=== PATIENT | female | born 1945 | race Caucasian/White ===

== ENCOUNTER 2020-08-11 10:27 | Inpatient (IN) | payer MEDICARE, MEDICAID, SELFPAY ==
[2020-08-11] VITALS (20 sets, daily range): BP systolic 84–170; BP diastolic 49–116; PULSE 86–120; RESP 15–24; TEMP 35.4–37; O2SAT 87–98; BMI 22.4; BMI 24.7
--- NOTE | 2020-08-11 10:42 | HMH.EDGENADL ---
ED Disposition Clinical Impression: HCAP (healthcare-associated pneumonia), Severe sepsis Respiratory failure with hypoxia Qualifiers: Chronicity: acute Qualified Code(s): J96.01 - Acute respiratory failure with hypoxia Disposition: Admitted As Inpatient Condition on Discharge: Serious Referrals: Taz Guardado [Primary Care Provider] - - Critical Care Critical Care Time: No Attestation: On , the high probability of a clinically significant, sudden or life threatening deterioration of the following system(s) required my full and direct attention, intervention and personal management. The time I documented below is in addition to time spent performing reported procedures but includes the following listed in this critical care notation. Medical Decision Making - Ralph Inquiry Pt receiving controlled substance: No Vital Signs: 08/11/20 10:28 08/11/20 10:44 08/11/20 11:00 Temperature 95.8 F L 98.2 F Temperature Source Rectal Rectal Pulse Rate 105 H 102 H Pulse Rate [Right Radial] 102 H Respiratory Rate 16 18 17 Blood Pressure 96/67 L Blood Pressure [Right Arm] 102/56 L Blood Pressure Mean [Right Arm] 71 Blood Pressure Source [Right Arm] Automatic Cuff Blood Pressure Position [Right Arm] Supine 02 Sat by Pulse Oximetry 96 96 95 Oxygen Delivery Method Simple Mask Simple Mask Oxygen Flow Rate (LPM) 6 5 - Lab Data Lab Results 08/11/20 10:30: WBC 26.8 H*, RBC 3.64 L, Hgb 10.8 L, Hct 33.9 L, MCV 93.3, MCH 29.7, MCHC 31.8, RDW 14.3, Plt Count 334, MPV 9.5, Neut % (Auto) 89.8 H, Lymph % (Auto) 6.7 L, [place] % (Auto) 2.5, Eos % (Auto) 0.6, Baso % (Auto) 0.4, Neut # (Auto) 24.1 H, Lymph # (Auto) 1.8, [place] # (Auto) 0.7, Eos # (Auto) 0.2, Baso # (Auto) 0.1, Total Counted 100, Neutrophils % (Manual) 91 H, Lymphocytes % (Manual) 7 L, Monocytes % (Manual) 2, Platelet Estimate Normal, Hypochromasia 1+ 08/11/20 10:30: Sodium 139, Potassium 4.1, Chloride 99, Carbon Dioxide 34 H, Anion Gap 10.1, BUN 31 H, Creatinine 1.00, Estimated Creat Clear 46, Estimated GFR 54 L, Est GFR ( Amer) 65, Glucose 91, Calcium 8.2 L, Total Bilirubin 0.6, AST 42 H, ALT 24, Alkaline Phosphatase 174 H, Troponin I 0.02, NT-Pro-B Natriuret Pep 1210 H, Total Protein 6.0 L, Albumin 2.4 L, Globulin 3.6 H, Albumin/Globulin Ratio 0.7 L 08/11/20 10:30: Lactate 1.4 08/11/20 11:01: Specimen Source Right radial, O2 % 5l nc, ABG pH 7.49 H, ABG pCO2 40.8, ABG pO2 79.8 L, ABG HCO3 30.3 H, ABG Total CO2 31.6 H, ABG O2 Saturation 96, ABG Base Excess 7.0 H, Michael Test Acceptable 08/11/20 11:11: Urine Color Yellow, Urine Appearance Clear, Urine pH 6.0, Ur Specific [place] 1.020, Urine Protein Negative, Urine Glucose (UA) Negative, Urine Ketones Negative, Urine Blood Negative, Urine Nitrate Negative, Urine Bilirubin 2+ A, Urine Urobilinogen 0.2, Ur Leukocyte Esterase Negative, Urine RBC None, Urine WBC 3-5, Ur Squamous Epith Cells Occasional, Urine Bacteria None Result diagrams: 08/11/20 10:30 08/11/20 10:30 Orders (Tests/Meds): ED MEDICATIONS Generic Name Dose Route Start Last Admin Trade Name Freq PRN Reason Stop Dose Admin Levofloxacin/Dextrose 750 mg in 150 mls @ 100 mls/hr 08/11/20 11:30 08/11/20 11:32 Levofloxacin 750mg/150ml Premix IV 08/25/20 11:29 100 mls/hr Q24H KARIN Administration Protocol Cefepime HCl 2 gm/ Sodium 100 mls @ 100 mls/hr 08/11/20 11:30 Chloride IV 08/25/20 11:29 Q12H KARIN Protocol Discontinued Medications Generic Name Dose Route Start Last Admin Trade Name Freq PRN Reason Stop Dose Admin Sodium Chloride 1,000 ml 08/11/20 12:05 Sodium Chloride 0.9% 1000ml Bag IV 08/11/20 12:06 BOLUS ONE ORDERS Category Date Time Status Full Resp Panel w/COVID ([facility]) Routine Lab 08/11/20 10:30 Received Troponin I Q3H Lab 08/11/20 14:15 Ordered Troponin I Q3H Lab 08/11/20 17:15 Ordered Blood Culture Stat Micro 08/11/20 10:30 Received MRSA Screen Stat Micro 08/11/20 12:04
--- NOTE | 2020-08-11 10:49 | PC.NURSE ---
Warm blanket applied to pt.
--- NOTE | 2020-08-11 10:56 | XR_ITS ---
PROCEDURE: XR CHEST PORTABLE CLINICAL HISTORY: low oxygen COMPARISON: No exams were available for comparison FINDINGS: Biventricular and right atrial pacemaker leads are in place from left subclavian approach. Normal heart size. There is consolidation in the left mid lower lung zone with small left pleural effusion. There is mild biapical pleural thickening. No acute bony abnormalities. IMPRESSION: Left lower lobe pneumonia with small effusion Dictated by: Michael Rick MD 08/11/2020 12:06 Michael Rick MD in OV 08/11/2020 12:06
[2020-08-11 10:59] LABS: Adenovirus,PCR Not Detected (NotDetected); Bordetella Pertussis Not Detected (NotDetected); Chlamydophila Pneumoniae, PCR Not Detected (NotDetected); Coronavirus 19, PCR Not Detected (NotDetected); Coronavirus 229E Not Detected (NotDetected); Coronavirus NL63 Not Detected (NotDetected); Coronavirus OC43 Not Detected (NotDetected); Coronovirus HKU1,PCR Not Detected (NotDetected); Human Metapneumovirus Not Detected (NotDetected); Influenza A, PCR Not Detected (NotDetected); Influenza AH1, 2009 Not Detected (NotDetected); Influenza AH1, PCR Not Detected (NotDetected); Influenza AH3,PCR Not Detected (NotDetected); Influenza B, PCR Not Detected (NotDetected); Mycoplasma Pneumoniae, PCR Not Detected (NotDetected); Parainfluenza 1, PCR Not Detected (NotDetected); Parainfluenza 2, PCR Not Detected (NotDetected); Parainfluenza 3, PCR Not Detected (NotDetected); Parainfluenza 4, PCR Not Detected (NotDetected); Respiratory Syncytial Virus Not Detected (NotDetected); Rhinovirus/Enterovirus Not Detected (NotDetected)
--- NOTE | 2020-08-11 11:02 | ECG_ITS ---
APPROVED REPORT Exam: Resting ECG HR:108 bpm ECG Measurements Heart Rate 108 AXES WI 86 P 62 QRSd 118 QRS -80 QT 396 T 68 QTc 530 Conclusion Electronic ventricular pacemaker Electronically signed by : Greg Willingham, 08/13/2020 21:24:56
[2020-08-11 11:08] LABS: Basophils # 0.1 K/mm3 (0-0.2); Basophils % 0.4 % (0.1-2.0); Eosinophils # 0.2 K/mm3 (0.0-0.4); Eosinophils % 0.6 % (0.1-12.0); Hematocrit 33.9 % (37.0-47.0); Hemoglobin 10.8 g/dL (12.2-16.2); Lymphocytes # 1.8 K/mm3 (0.7-4.5); Lymphocytes % 6.7 % (10-50); Mean Corpuscular HGB Conc 31.8 g/dL (31.8-35.4); Mean Corpuscular Hemoglobin 29.7 pg (27.0-31.2); Mean Corpuscular Volume 93.3 fl (81-99); Mean Platelet Volume 9.5 fl (7.4-10.4); Monocytes # 0.7 K/mm3 (0.1-1.0); Monocytes % 2.5 % (1.7-9.3); Neutrophils # 24.1 K/mm3 (1.8-7.8); Neutrophils % 89.8 % (37.0-80.0); Platelet Count 334 K/mm3 (142-424); Red Blood Count 3.64 M/mm3 (4.20-5.40); Red Cell Distribution Width 14.3 % (11.5-17.5); White Blood Count 26.8 K/mm3 (4.8-10.8)
[2020-08-11 11:15] LABS: Chloride 99 mmol/L (98-107); Potassium 4.1 mmoL/L (3.5-5.1); Sodium 139 mmol/L (136-145)
[2020-08-11 11:17] LABS: MANUAL DIFFERENTIAL MANUAL DIFFERENTIAL (MANUAL DIFF)
[2020-08-11 11:17] LABS: Microscopic, Urine URINE MICROSCOPIC (MICROSCOPIC)
--- NOTE | 2020-08-11 11:17 | PC.NURSE ---
rad at bedside
[2020-08-11 11:18] LABS: Alanine Aminotransferase 24 U/L (12-78); Albumin Level 2.4 g/dl (3.5-5.0); Albumin/Globulin Ratio 0.7 (1.1-1.8); Alkaline Phosphatase 174 U/L (38-126); Anion Gap 10.1 mEq/L (5-15); Aspartate Amino Transferase 42 U/L (14-36); Bilirubin,Total 0.6 mg/dl (0.2-1.3); Blood Urea Nitrogen 31 mg/dl (7-17); Calcium 8.2 mg/dl (8.4-10.2); Carbon Dioxide 34 mmol/L (22.0-30.0); Creatinine Clearance Estimated 46 mL/min (50-200); Estimated Glomerular Filt Rate 54 ml/min (>60); GFR (African American) 65 ML/MIN (>60); Globulin 3.6 g/dL (1.3-3.2); Glucose 91 mg/dl (74-100)
[2020-08-11 11:19] LABS: Lactic Acid 1.4 mmol/L (0.7-2.1)
[2020-08-11 11:27] LABS: Appearance,Urine CLEAR (Clear); Blood, Urine Negative (Negative); Color,Urine YELLOW (Yellow); Glucose,Urine (UA) Negative (Negative); Ketones,Urine Negative (Negative); Leukocyte Esterase,Urine Negative (Negative); Nitrate,Urine Negative (Negative); Protein,Urine Negative (Negative); Urobilinogen,Urine 0.2 EU/dl (0.2)
--- NOTE | 2020-08-11 11:28 | PC.NURSE ---
RT at bedside
[2020-08-11 11:31] LABS: Bilirubin,Urine 2+ (Negative)
[2020-08-11 11:37] LABS: ABG HCO3 30.3 mmhg (22.0-26.0); ABG Oxygen Saturation 96 % (90-100); ABG PCO2 40.8 mmhg (35.0-45.0); ABG PH 7.49 mmol/L (7.35-7.45); ABG PO2 79.8 mmhg (80-100); ABG TCO2 31.6 mmhg (23-27)
[2020-08-11 11:37] LABS: NT Pro Brain Natriuretic Pep. 1210 pg/mL (0-450)
[2020-08-11 11:41] LABS: Troponin I 0.02 ng/ml (0.00-0.034)
[2020-08-11 11:41] LABS: Oxygen 5L NC %
[2020-08-11 11:42] LABS: Allen's Test Acceptable; Source Right Radial
[2020-08-11 11:44] LABS: Squamous Epithelial Cell,Urine Occasional #/hpf (0-5)
[2020-08-11 11:53] LABS: Hypochromasia 1+; Lymphocytes % 7 % (10-50); Monocytes % 2 % (2-9); Neutrophils % 91 % (42-76); Platelet Estimate Normal; Total Cells Counted 100
--- NOTE | 2020-08-11 11:56 | PC.NURSE ---
Calling Miguelangel per MD request
--- NOTE | 2020-08-11 11:59 | PC.NURSE ---
Miguelangel and HILLARY MONTELONGO speaking at this time.
--- NOTE | 2020-08-11 12:18 | PC.NURSE ---
Called care management for a bed.
--- NOTE | 2020-08-11 13:22 | PC.NURSE ---
MD at bedside providing update.
--- NOTE | 2020-08-11 14:55 | P.CONPHA_ITS ---
[facility] Pharmacy VTE Monitoring - Patient Demographics Admission date: 08/11/20 Report Date: 08/11/20 Time: 14:55 Allergies/Adverse Reactions: Patient Allergies amiodarone Allergy (Verified 08/11/20 10:46) Height: 1.65 m Weight: 61.235 kg Patient Problems: Current Active Problems HCAP (healthcare-associated pneumonia) (Acute) Severe sepsis (Acute) Respiratory failure with hypoxia (Acute) - VTE Risk Labs: VTE Related Lab Results Hgb 10.8 g/dL (12.2-16.2) L 08/11/20 10:30 Hct 33.9 % (37.0-47.0) L 08/11/20 10:30 Plt Count 334 K/mm3 (142-424) 08/11/20 10:30 BUN 31 mg/dl (7-17) H 08/11/20 10:30 Creatinine 1.00 mg/dl (0.52-1.04) 08/11/20 10:30 Estimated Creat Clear 46 mL/min (50-200) 08/11/20 10:30 Was VTE Risk Assessment Performed: Yes Clinical Trial Participant: No - Prophylaxis VTE Prophylaxis Ordered?: Yes Types of VTE Prophylaxis: TEDS Knee High
--- NOTE | 2020-08-11 16:19 | PC.WOUNDNOTE ---
Left Arm Stage II coccyx Right Arm
--- NOTE | 2020-08-11 17:06 | HMH.HP ---
*Admission Date: 08/11/20 *Chief complaint: Shortness of breath *History of present illness: 74-year-old female with rheumatoid arthritis, COPD, and congestive heart failure presented to the emergency department from [facility] where patient has been residing for the last week. Patient was found to be hypoxic with decreased level of consciousness at the facility today and was transferred to our emergency department. Patient's O2 sat in route was as low as 78%. Patient arrived to the hospital ER on a nonrebreather. Patient was somnolent with depressed level of consciousness and minimal interaction. Work-up was begun and found a large left lower lobe pneumonia. Patient was started on broad-spectrum antibiotic coverage with cefepime and Levaquin. Since admission to the floor additional records have been received from [facility] that indicated patient has had staph in her sputum and was started on doxycycline yesterday. Therefore vancomycin has been added. Nonrebreather was used to try to keep sats in the low 90s which initially was successful but after admission patient has required transition to the Vapotherm which is keeping sats between 88 and 94%. Patient remains minimally interactive. Granddaughter is at bedside. Patient is moving arms and legs but does not respond to verbal or tactile stimulus. [facility] History I have reviewed the patient's past medical history: Yes Medical History: Reports:: Congestive Heart Failure, Hyperlipidemia, Hypertension Denies:: Diabetes Mellitus Type 1, Diabetes Mellitus Type 2 *Have you ever received a pneumonia vaccine?: Yes *Have you received a flu vaccine this season?: Yes - *Social History Alcohol Intake: never *Occupational Status:: other *Travel in the last 8 weeks: None Family Hx:: Unable to obtain Review of Systems - Review of Systems Review of systems:: unable to obtain Meds Home Medications Medication Instructions Recorded Confirmed Type Albuterol Sulfate [Albuterol 2 puff IH Q6HP PRN 08/11/20 08/11/20 History Sulfate Hfa] Aspirin 81 mg PO DAILY 08/11/20 08/11/20 History Baclofen [Lioresal 10mg tablet] 10 mg PO TID 08/11/20 08/11/20 History Celecoxib [CeleBREX 100mg Capsule] 100 mg PO TID 08/11/20 08/11/20 History Doxycycline Hyclate [Doxycycline 100 mg PO BID 08/11/20 08/11/20 History Hyclate 100mg Tablet] LORazepam [Lorazepam 1mg Tablet] 1 mg PO BID 08/11/20 08/11/20 History Montelukast Sodium 10 mg PO DAILY 08/11/20 08/11/20 History OXcarbazepine [Trileptal] 300 mg PO BID 08/11/20 08/11/20 History Omeprazole [Omeprazole 40mg 40 mg PO BID 08/11/20 08/11/20 History Capsule] Potassium Chloride [Klor-Con] 20 meq PO DAILY 08/11/20 08/11/20 History Simvastatin 40 mg PO HS 08/11/20 08/11/20 History Spironolactone [Spironolactone 25 mg PO DAILY 08/11/20 08/11/20 History 25mg Tablet] Torsemide [Demadex 20mg tablet] 20 mg PO DAILY 08/11/20 08/11/20 History Tramadol HCl [Tramadol 50mg 50 mg PO Q12H 08/11/20 08/11/20 History Tab] Trazodone HCl 300 mg PO HS 08/11/20 08/11/20 History Zinc Oxide [Diaper Rash Ointment] 0 gm TP QSHIFT PRN 08/11/20 08/11/20 History carvediloL [Carvedilol 25mg Tab] 12.5 mg PO DAILY 08/11/20 08/11/20 History carvediloL [Coreg 25mg Tablet] 25 mg PO HS 08/11/20 08/11/20 History ramipriL [Ramipril] 5 mg PO DAILY 08/11/20 08/11/20 History Allergies Allergy/AdvReac Type Severity Reaction Status Date / Time amiodarone Allergy Verified 08/11/20 10:46 Exam Vital signs and Labs for Last 24 Hours: Temp Pulse Resp BP Pulse Ox 97.7 F 110 H 20 114/59 L 90 L 08/11/20 15:11 08/11/20 15:24 08/11/20 15:11 08/11/20 15:11 08/11/20 16:10 Laboratory Results - last 24 hr 08/11/20 10:30: Chlamy pneumoniae PCR Not detected, Adenovirus (PCR) Not detected, B. pertussis DNA (PCR) Not detected, Coronavirus OC43 (PCR) Not detected, Coronavirus HKU1 (PCR) Not detected, Coronavirus 229E (PCR) Not detected, SARS-C
[2020-08-12] VITALS (11 sets, daily range): BP systolic 113–131; BP diastolic 63–77; PULSE 90–115; RESP 20–28; TEMP 36.6–37.3; O2SAT 94–99; BMI 24.9; BMI 24.7
--- NOTE | 2020-08-12 01:49 | PC.NURSE ---
She has mumbled some but unable to understand her speech. She moves all extremities and responds to touch. Has not opened her eyes. Meds administered crushed in applesauce with no problem. Vapotherm settings 25LPM 60%FiO2.
[2020-08-12 05:28] LABS: Chloride 108 mmol/L (98-107); Potassium 3.8 mmoL/L (3.5-5.1); Sodium 143 mmol/L (136-145)
[2020-08-12 05:31] LABS: Blood Urea Nitrogen 26 mg/dl (7-17); Creatinine Clearance Estimated 46 mL/min (50-200); Estimated Glomerular Filt Rate 97 ml/min (>60); GFR (African American) 118 ML/MIN (>60)
[2020-08-12 05:32] LABS: Anion Gap 9.8 mEq/L (5-15); Basophils # 0.1 K/mm3 (0-0.2); Basophils % 0.3 % (0.1-2.0); Calcium 8.1 mg/dl (8.4-10.2); Carbon Dioxide 29 mmol/L (22.0-30.0); Eosinophils % 0.1 % (0.1-12.0); Glucose 75 mg/dl (74-100); Hematocrit 32.4 % (37.0-47.0); Hemoglobin 9.9 g/dL (12.2-16.2); Lymphocytes # 1.3 K/mm3 (0.7-4.5); Lymphocytes % 6.2 % (10-50); Mean Corpuscular HGB Conc 30.7 g/dL (31.8-35.4); Mean Corpuscular Hemoglobin 29.2 pg (27.0-31.2); Mean Corpuscular Volume 95.1 fl (81-99); Mean Platelet Volume 8.8 fl (7.4-10.4); Monocytes # 0.5 K/mm3 (0.1-1.0); Monocytes % 2.6 % (1.7-9.3); Neutrophils # 18.8 K/mm3 (1.8-7.8); Neutrophils % 90.7 % (37.0-80.0); Platelet Count 304 K/mm3 (142-424); Red Cell Distribution Width 14.3 % (11.5-17.5); White Blood Count 20.7 K/mm3 (4.8-10.8)
[2020-08-12 05:38] LABS: MANUAL DIFFERENTIAL MANUAL DIFFERENTIAL (MANUAL DIFF)
[2020-08-12 05:58] LABS: Lymphocytes % 6 % (10-50); Monocytes % 2 % (2-9); Neutrophils % 92 % (42-76); Platelet Estimate Normal; Stomatocytes 1+; Total Cells Counted 100
--- NOTE | 2020-08-12 06:32 | PC.NURSE ---
She was able to answer yes when asked if she was in pain and stated her leg when asked where, but did not respond to further questions.
--- NOTE | 2020-08-12 06:40 | PC.NURSE ---
Respiratory weaned vapotherm to 25LPM 50% FiO2.
--- NOTE | 2020-08-12 07:15 | HMH.ACPN2 ---
Internal Medicine - PN: Subj *Date: 08/12/20 *Time: 07:15 Interval history: Patient is remained stable overnight and has become more alert. She reports shortness of breath. She denies pain. She is thirsty. Sputum culture was obtained this morning via suction and produced thick brownish-yellow sputum with the consistency of glue Exam Vital signs and Labs for Last 24 Hours: Temp Pulse Resp BP Pulse Ox 99.1 F 104 H 20 117/63 99 08/12/20 04:00 08/12/20 06:38 08/12/20 04:00 08/12/20 04:00 08/12/20 06:38 Laboratory Results - last 24 hr 08/11/20 10:30: Chlamy pneumoniae PCR Not detected, Adenovirus (PCR) Not detected, B. pertussis DNA (PCR) Not detected, Coronavirus OC43 (PCR) Not detected, Coronavirus HKU1 (PCR) Not detected, Coronavirus 229E (PCR) Not detected, SARS-CoV-2 (PCR) Not detected, Coronavirus NL63 (PCR) Not detected, Human Metapneumovir PCR Not detected, Influenza A (H1) PCR Not detected, Influ A (H1N1/09) PCR Not detected, Influenza A (H3) PCR Not detected, Influenza Type A (PCR) Not detected, Influenza Type B (PCR) Not detected, M. pneumoniae (PCR) Not detected, Parainfluenza 1 (PCR) Not detected, Parainfluenza 2 (PCR) Not detected, Parainfluenza 3 (PCR) Not detected, Parainfluenza 4 (PCR) Not detected, RSV (PCR) Not detected, Entero/Rhino (PCR) Not detected 08/11/20 10:30: WBC 26.8 H*, RBC 3.64 L, Hgb 10.8 L, Hct 33.9 L, MCV 93.3, MCH 29.7, MCHC 31.8, RDW 14.3, Plt Count 334, MPV 9.5, Neut % (Auto) 89.8 H, Lymph % (Auto) 6.7 L, [place] % (Auto) 2.5, Eos % (Auto) 0.6, Baso % (Auto) 0.4, Neut # (Auto) 24.1 H, Lymph # (Auto) 1.8, [place] # (Auto) 0.7, Eos # (Auto) 0.2, Baso # (Auto) 0.1, Total Counted 100, Neutrophils % (Manual) 91 H, Lymphocytes % (Manual) 7 L, Monocytes % (Manual) 2, Platelet Estimate Normal, Hypochromasia 1+ 08/11/20 10:30: Sodium 139, Potassium 4.1, Chloride 99, Carbon Dioxide 34 H, Anion Gap 10.1, BUN 31 H, Creatinine 1.00, Estimated Creat Clear 46, Estimated GFR 54 L, Est GFR ( Amer) 65, Glucose 91, Calcium 8.2 L, Total Bilirubin 0.6, AST 42 H, ALT 24, Alkaline Phosphatase 174 H, Troponin I 0.02, NT-Pro-B Natriuret Pep 1210 H, Total Protein 6.0 L, Albumin 2.4 L, Globulin 3.6 H, Albumin/Globulin Ratio 0.7 L 08/11/20 10:30: Lactate 1.4 08/11/20 11:01: Specimen Source Right radial, O2 % 5l nc, ABG pH 7.49 H, ABG pCO2 40.8, ABG pO2 79.8 L, ABG HCO3 30.3 H, ABG Total CO2 31.6 H, ABG O2 Saturation 96, ABG Base Excess 7.0 H, Michael Test Acceptable 08/11/20 11:11: Urine Color Yellow, Urine Appearance Clear, Urine pH 6.0, Ur Specific [place] 1.020, Urine Protein Negative, Urine Glucose (UA) Negative, Urine Ketones Negative, Urine Blood Negative, Urine Nitrate Negative, Urine Bilirubin 2+ A, Urine Urobilinogen 0.2, Ur Leukocyte Esterase Negative, Urine RBC None, Urine WBC 3-5, Ur Squamous Epith Cells Occasional, Urine Bacteria None 08/12/20 04:53: WBC 20.7 H*, RBC 3.40 L, Hgb 9.9 L, Hct 32.4 L, MCV 95.1, MCH 29.2, MCHC 30.7 L, RDW 14.3, Plt Count 304, MPV 8.8, Neut % (Auto) 90.7 H, Lymph % (Auto) 6.2 L, [place] % (Auto) 2.6, Eos % (Auto) 0.1, Baso % (Auto) 0.3, Neut # (Auto) 18.8 H, Lymph # (Auto) 1.3, [place] # (Auto) 0.5, Eos # (Auto) 0.0, Baso # (Auto) 0.1, Total Counted 100, Neutrophils % (Manual) 92 H, Lymphocytes % (Manual) 6 L, Monocytes % (Manual) 2, Platelet Estimate Normal, Stomatocytes 1+ 08/12/20 04:53: Sodium 143, Potassium 3.8, Chloride 108 H, Carbon Dioxide 29, Anion Gap 9.8, BUN 26 H, Creatinine 0.60 D, Estimated Creat Clear 46, Estimated GFR 97, Est GFR ( Amer) 118 D, Glucose 75, Calcium 8.1 L I & O for Last 24 hours: Intake & Output 08/09/20 08/10/20 08/11/20 08/12/20 11:59 11:59 11:59 11:59 Intake Total 1545 / 1545 Output Total 175 / 175 Balance 1370 / 1370 Weight 135 lb 135 lb 9 oz Narrative: Patient is resting comfortably with no increased work of breathing. Her eyes remain closed (patient rarely opens her eyes due to history of severe eye infections according to family). Lucille
--- NOTE | 2020-08-12 07:18 | SW/DCPLANNER ---
Addendum entered by Maine Allen 08/12/20 13:43: SENT UPDATES TO [facility] ON THIS PATIENT... DISCHARGE UNCERTAIN BUT COULD BE IN THE NEXT FEW DAYS... Original Note: PATIENT ADMITTED TO [facility] WITH A DIAGNOSIS OF RESP FAILURE.... PATIENT IS A RESIDENT OF [facility] AND HAS A DOCTOR IN [place]... I HAVE NOTIFIED THE [employer] SCIENCE TEACHER AT [facility] AND SHE WILL BE RETURNING BACK THERE UPON DISCHARGE, SHE IS SKILLED UNDER HER STEFFEN STARKS...
--- NOTE | 2020-08-12 08:09 | HMH.PHACONS ---
- Pharmacy Consult Date: 08/12/20 Time: 08:09 Referring provider: MARIAN Reason for Consult:: VANCOMYCIN THERAPY FOR SUSPECTED SEPSIS AND PNEUMONIA. CONTINUING WITH BROAD SPECTRUM ANTIBIOTICS (CEFEPIME AND LEVAQUIN) WELL. Allergies and ADEs:: Allergies Allergy/AdvReac Type Severity Reaction Status Date / Time amiodarone Allergy Verified 08/11/20 10:46 Home Medications:: Home Medications Medication Instructions Recorded Confirmed Type Albuterol Sulfate [Albuterol 2 puff IH Q6HP PRN 08/11/20 08/11/20 History Sulfate Hfa] Aspirin 81 mg PO DAILY 08/11/20 08/11/20 History Baclofen [Lioresal 10mg tablet] 10 mg PO TID 08/11/20 08/11/20 History Celecoxib [CeleBREX 100mg Capsule] 100 mg PO TID 08/11/20 08/11/20 History Doxycycline Hyclate [Doxycycline 100 mg PO BID 08/11/20 08/11/20 History Hyclate 100mg Tablet] LORazepam [Lorazepam 1mg Tablet] 1 mg PO BID 08/11/20 08/11/20 History Montelukast Sodium 10 mg PO DAILY 08/11/20 08/11/20 History OXcarbazepine [Trileptal] 300 mg PO BID 08/11/20 08/11/20 History Omeprazole [Omeprazole 40mg 40 mg PO BID 08/11/20 08/11/20 History Capsule] Potassium Chloride [Klor-Con] 20 meq PO DAILY 08/11/20 08/11/20 History Simvastatin 40 mg PO HS 08/11/20 08/11/20 History Spironolactone [Spironolactone 25 mg PO DAILY 08/11/20 08/11/20 History 25mg Tablet] Torsemide [Demadex 20mg tablet] 20 mg PO DAILY 08/11/20 08/11/20 History Tramadol HCl [Tramadol 50mg 50 mg PO Q12H 08/11/20 08/11/20 History Tab] Trazodone HCl 300 mg PO HS 08/11/20 08/11/20 History Zinc Oxide [Diaper Rash Ointment] 0 gm TP QSHIFT PRN 08/11/20 08/11/20 History carvediloL [Carvedilol 25mg Tab] 12.5 mg PO DAILY 08/11/20 08/11/20 History carvediloL [Coreg 25mg Tablet] 25 mg PO HS 08/11/20 08/11/20 History ramipriL [Ramipril] 5 mg PO DAILY 08/11/20 08/11/20 History Height: 1.57 m Weight: 61.49 kg Laboratory Results:: Laboratory Results - last 24 hr 08/11/20 10:30: Chlamy pneumoniae PCR Not detected, Adenovirus (PCR) Not detected, B. pertussis DNA (PCR) Not detected, Coronavirus OC43 (PCR) Not detected, Coronavirus HKU1 (PCR) Not detected, Coronavirus 229E (PCR) Not detected, SARS-CoV-2 (PCR) Not detected, Coronavirus NL63 (PCR) Not detected, Human Metapneumovir PCR Not detected, Influenza A (H1) PCR Not detected, Influ A (H1N1/09) PCR Not detected, Influenza A (H3) PCR Not detected, Influenza Type A (PCR) Not detected, Influenza Type B (PCR) Not detected, M. pneumoniae (PCR) Not detected, Parainfluenza 1 (PCR) Not detected, Parainfluenza 2 (PCR) Not detected, Parainfluenza 3 (PCR) Not detected, Parainfluenza 4 (PCR) Not detected, RSV (PCR) Not detected, Entero/Rhino (PCR) Not detected 08/11/20 10:30: WBC 26.8 H*, RBC 3.64 L, Hgb 10.8 L, Hct 33.9 L, MCV 93.3, MCH 29.7, MCHC 31.8, RDW 14.3, Plt Count 334, MPV 9.5, Neut % (Auto) 89.8 H, Lymph % (Auto) 6.7 L, [place] % (Auto) 2.5, Eos % (Auto) 0.6, Baso % (Auto) 0.4, Neut # (Auto) 24.1 H, Lymph # (Auto) 1.8, [place] # (Auto) 0.7, Eos # (Auto) 0.2, Baso # (Auto) 0.1, Total Counted 100, Neutrophils % (Manual) 91 H, Lymphocytes % (Manual) 7 L, Monocytes % (Manual) 2, Platelet Estimate Normal, Hypochromasia 1+ 08/11/20 10:30: Sodium 139, Potassium 4.1, Chloride 99, Carbon Dioxide 34 H, Anion Gap 10.1, BUN 31 H, Creatinine 1.00, Estimated Creat Clear 46, Estimated GFR 54 L, Est GFR ( Amer) 65, Glucose 91, Calcium 8.2 L, Total Bilirubin 0.6, AST 42 H, ALT 24, Alkaline Phosphatase 174 H, Troponin I 0.02, NT-Pro-B Natriuret Pep 1210 H, Total Protein 6.0 L, Albumin 2.4 L, Globulin 3.6 H, Albumin/Globulin Ratio 0.7 L 08/11/20 10:30: Lactate 1.4 08/11/20 11:01: Specimen Source Right radial, O2 % 5l nc, ABG pH 7.49 H, ABG pCO2 40.8, ABG pO2 79.8 L, ABG HCO3 30.3 H, ABG Total CO2 31.6 H, ABG O2 Saturation 96, ABG Base Excess 7.0 H, Michael Test Acceptable 08/11/20 11:11: Urine Color Yellow, Urine Appearance Clear, Urine pH 6.0, Ur Specific [place] 1.020, Urine Protein Negative, Urine Glu
[2020-08-13] VITALS (12 sets, daily range): BP systolic 121–140; BP diastolic 61–81; PULSE 91–110; RESP 22–26; TEMP 36.5–36.8; O2SAT 93–98; BMI 24.7
--- NOTE | 2020-08-13 06:05 | PC.NURSE ---
She is talking to people who are not in her room. Cursing at times and stating get in the car kid.
--- NOTE | 2020-08-13 07:46 | P.PN_ITS ---
Internal Medicine - PN: Subj *Date: 08/13/20 *Time: 07:46 Interval history: No events over the last 24 hours. Patient is remained stable. Patient reports back pain. Patient reports shortness of breath. Exam Vital signs and Labs for Last 24 Hours: Temp Pulse Resp BP Pulse Ox 97.9 F 101 H 24 136/81 94 L 08/13/20 04:00 08/13/20 05:45 08/13/20 04:00 08/13/20 04:00 08/13/20 05:45 I & O for Last 24 hours: Intake & Output 08/10/20 08/11/20 08/12/20 08/13/20 11:59 11:59 11:59 11:59 Intake Total 1545 / 1545 3549 / 3549 Output Total 175 / 175 575 / 575 Balance 1370 / 1370 2974 / 2974 Weight 135 lb 135 lb 9 oz 134 lb 7.712 oz Microbiology Reports for the Last 24 Hours: Microbiology 08/12/20 06:00 Sputum - Expectorated Sputum Gram Stain - Final Narrative: Patient appears comfortable with no increased work of breathing. Lungs reveal diminished breath sounds in the left lung base with rales in the left anterior lung. Heart has a tachycardic rate. Abdomen reveals some epigastric discomfort. Assessment and Plan (1) HCAP (healthcare-associated pneumonia) Status: Acute Category: Medical Code(s): J18.9 - Pneumonia, unspecified organism (2) Severe sepsis Status: Acute Category: Medical Code(s): A41.9 - Sepsis, unspecified organism; R65.20 - Severe sepsis without septic shock (3) Respiratory failure with hypoxia Status: Acute Qualifiers: Chronicity: acute Qualified Code(s): J96.01 - Acute respiratory failure with hypoxia Category: Medical Code(s): J96.91 - Respiratory failure, unspecified with hy poxia (4) Congestive heart failure Status: Acute Category: Medical Code(s): I50.9 - Heart failure, unspecified (5) COPD (chronic obstructive pulmonary disease) Status: Acute Category: Medical Code(s): J44.9 - Chronic obstructive pulmonary disease, unspecified (6) Rheumatoid arthritis Status: Acute Category: Medical Code(s): M06.9 - Rheumatoid arthritis, unspecified (7) DNR (do not resuscitate) Status: Acute Category: Medical Code(s): Z66 - Do not resuscitate (8) Left calcaneal fracture Status: Acute Category: Medical Code(s): S92.002A - Unspecified fracture of left calcaneus, initial encounter for closed fracture - Assessment and plan all Dx Assessment and Plan for all problems:: 1. Continue broad-spectrum antibiotic coverage while awaiting sputum and blood cultures. 2. Chest physiotherapy if patient is able to tolerate
[2020-08-13 08:44] LABS: Basophils # 0.1 K/mm3 (0-0.2); Basophils % 0.3 % (0.1-2.0); Eosinophils # 0.1 K/mm3 (0.0-0.4); Eosinophils % 0.5 % (0.1-12.0); Hematocrit 31.7 % (37.0-47.0); Hemoglobin 9.8 g/dL (12.2-16.2); Lymphocytes # 1.2 K/mm3 (0.7-4.5); Lymphocytes % 4.6 % (10-50); Mean Corpuscular Hemoglobin 29.4 pg (27.0-31.2); Mean Corpuscular Volume 94.8 fl (81-99); Mean Platelet Volume 8.6 fl (7.4-10.4); Monocytes # 0.5 K/mm3 (0.1-1.0); Monocytes % 2.2 % (1.7-9.3); Neutrophils % 92.3 % (37.0-80.0); Platelet Count 262 K/mm3 (142-424); Red Blood Count 3.34 M/mm3 (4.20-5.40); Red Cell Distribution Width 14.6 % (11.5-17.5); White Blood Count 24.9 K/mm3 (4.8-10.8)
[2020-08-13 08:47] LABS: MANUAL DIFFERENTIAL MANUAL DIFFERENTIAL (MANUAL DIFF)
[2020-08-13 08:57] LABS: Chloride 113 mmol/L (98-107); Sodium 142 mmol/L (136-145)
[2020-08-13 09:00] LABS: Anion Gap 7.9 mEq/L (5-15); Blood Urea Nitrogen 19 mg/dl (7-17); Calcium 7.7 mg/dl (8.4-10.2); Carbon Dioxide 24 mmol/L (22.0-30.0); Creatinine Clearance Estimated 46 mL/min (50-200); Estimated Glomerular Filt Rate 155 ml/min (>60); GFR (African American) 188 ML/MIN (>60); Glucose 82 mg/dl (74-100)
[2020-08-13 09:06] LABS: Potassium 2.9 mmoL/L (3.5-5.1)
[2020-08-13 09:54] LABS: Lymphocytes % 4 % (10-50); Monocytes % 5 % (2-9); Neutrophils % 91 % (42-76); Platelet Estimate Normal; RBC Morphology Normal; Total Cells Counted 100
--- NOTE | 2020-08-13 21:18 | PC.NURSE ---
trash pulled and snack refused at this time
[2020-08-14] VITALS (14 sets, daily range): BP systolic 109–161; BP diastolic 66–75; PULSE 98–121; RESP 24–29; TEMP 36.3–37.7; O2SAT 88–100; BMI 24.7
[2020-08-14 06:21] LABS: Chloride 117 mmol/L (98-107); Sodium 143 mmol/L (136-145)
[2020-08-14 06:22] LABS: Potassium 3.6 mmoL/L (3.5-5.1)
[2020-08-14 06:24] LABS: Blood Urea Nitrogen 16 mg/dl (7-17); Creatinine Clearance Estimated 46 mL/min (50-200); Estimated Glomerular Filt Rate 155 ml/min (>60); GFR (African American) 188 ML/MIN (>60)
[2020-08-14 06:25] LABS: Anion Gap 9.6 mEq/L (5-15); Calcium 7.7 mg/dl (8.4-10.2); Carbon Dioxide 20 mmol/L (22.0-30.0); Glucose 66 mg/dl (74-100)
[2020-08-14 06:50] LABS: Basophils # 0.3 K/mm3 (0-0.2); Basophils % 0.9 % (0.1-2.0); Eosinophils # 0.1 K/mm3 (0.0-0.4); Eosinophils % 0.5 % (0.1-12.0); Lymphocytes # 1.1 K/mm3 (0.7-4.5); Lymphocytes % 3.8 % (10-50); Mean Corpuscular HGB Conc 31.5 g/dL (31.8-35.4); Mean Corpuscular Hemoglobin 28.8 pg (27.0-31.2); Mean Corpuscular Volume 91.4 fl (81-99); Monocytes # 2.1 K/mm3 (0.1-1.0); Monocytes % 7.4 % (1.7-9.3); Neutrophils # 24.7 K/mm3 (1.8-7.8); Neutrophils % 87.3 % (37.0-80.0); Red Cell Distribution Width 14.4 % (11.5-17.5); White Blood Count 28.2 K/mm3 (4.8-10.8)
[2020-08-14 07:08] LABS: Hemoglobin 9.9 g/dL (12.2-16.2); Mean Platelet Volume 8.5 fl (7.4-10.4); Platelet Count 254 K/mm3 (142-424); Red Blood Count 3.45 M/mm3 (4.20-5.40)
[2020-08-14 07:09] LABS: Hematocrit 32.1 % (37.0-47.0); MANUAL DIFFERENTIAL MANUAL DIFFERENTIAL (MANUAL DIFF)
--- NOTE | 2020-08-14 07:16 | HMH.ACPN2 ---
Internal Medicine - PN: Subj *Date: 08/14/20 *Time: 07:16 Interval history: No acute events over the last 24 hours. Patient continues to talk all night long but is interactive with staff. She denies pain but admits to shortness of breath. Exam Vital signs and Labs for Last 24 Hours: Temp Pulse Resp BP Pulse Ox 98.0 F 106 H 26 H 161/75 H 94 L 08/14/20 04:00 08/14/20 06:08 08/14/20 04:00 08/14/20 04:00 08/14/20 06:08 Laboratory Results - last 24 hr 08/13/20 08:24: WBC 24.9 H*, RBC 3.34 L, Hgb 9.8 L, Hct 31.7 L, MCV 94.8, MCH 29.4, MCHC 31.0 L, RDW 14.6, Plt Count 262, MPV 8.6, Neut % (Auto) 92.3 H, Lymph % (Auto) 4.6 L, [place] % (Auto) 2.2, Eos % (Auto) 0.5, Baso % (Auto) 0.3, Neut # (Auto) 23.0 H, Lymph # (Auto) 1.2, [place] # (Auto) 0.5, Eos # (Auto) 0.1, Baso # (Auto) 0.1, Total Counted 100, Neutrophils % (Manual) 91 H, Lymphocytes % (Manual) 4 L, Monocytes % (Manual) 5, Platelet Estimate Normal, RBC Morphology Normal 08/13/20 08:24: Sodium 142, Potassium 2.9 L* D, Chloride 113 H, Carbon Dioxide 24, Anion Gap 7.9, BUN 19 H D, Creatinine 0.40 L D, Estimated Creat Clear 46, Estimated GFR 155, Est GFR ( Amer) 188 D, Glucose 82, Calcium 7.7 L 08/13/20 17:47: Vancomycin Trough 6.0 08/14/20 05:57: WBC 28.2 H*, RBC 3.45 L, Hgb 9.9 L, Hct 32.1 L, MCV 91.4, MCH 28.8, MCHC 31.5 L, RDW 14.4, Plt Count 254, MPV 8.5, Neut % (Auto) 87.3 H, Lymph % (Auto) 3.8 L, [place] % (Auto) 7.4, Eos % (Auto) 0.5, Baso % (Auto) 0.9, Neut # (Auto) 24.7 H, Lymph # (Auto) 1.1, [place] # (Auto) 2.1 H, Eos # (Auto) 0.1, Baso # (Auto) 0.3 H 08/14/20 05:57: Sodium 143, Potassium 3.6 D, Chloride 117 H, Carbon Dioxide 20 L, Anion Gap 9.6, BUN 16, Creatinine 0.40 L, Estimated Creat Clear 46, Estimated GFR 155, Est GFR ( Amer) 188, Glucose 66 L, Calcium 7.7 L I & O for Last 24 hours: Intake & Output 08/11/20 08/12/20 08/13/20 08/14/20 11:59 11:59 11:59 11:59 Intake Total 1545 / 1545 3549 / 3549 410 / 410 Output Total 175 / 175 575 / 575 500 / 500 Balance 1370 / 1370 2974 / 2974 -90 / -90 Weight 135 lb 135 lb 9 oz 134 lb 7.712 oz 134 lb 7 oz Microbiology Reports for the Last 24 Hours: Microbiology 08/11/20 10:30 Blood Blood Culture - Preliminary NO GROWTH AFTER 48 HOURS 08/11/20 10:30 Blood Blood Culture - Preliminary NO GROWTH AFTER 48 HOURS 08/12/20 06:00 Sputum - Expectorated Sputum Gram Stain - Final 08/12/20 06:00 Sputum - Expectorated Sputum Sputum Culture - Preliminary Narrative: Patient looks comfortable with no increased work of breathing. Lungs have rhonchi in the left side. Heart has a tachycardic rate. Left arm appears swollen. Abdomen is soft Assessment and Plan (1) HCAP (healthcare-associated pneumonia) Status: Acute Category: Medical Code(s): J18.9 - Pneumonia, unspecified organism (2) Severe sepsis Status: Acute Category: Medical Code(s): A41.9 - Sepsis, unspecified organism; R65.20 - Severe sepsis without septic shock (3) Respiratory failure with hypoxia Status: Acute Qualifiers: Chronicity: acute Qualified Code(s): J96.01 - Acute respiratory failure with hypoxia Category: Medical Code(s): J96.91 - Respiratory failure, unspecified with hypoxia (4) Congestive heart failure Status: Acute Category: Medical Code(s): I50.9 - Heart failure, unspecified (5) COPD (chronic obstructive pulmonary disease) Status: Acute Category: Medical Code(s): J44.9 - Chronic obstructive pulmonary disease, unspecified (6) Rheumatoid arthritis Status: Acute Category: Medical Code(s): M06.9 - Rheumatoid arthritis, unspecified (7) DNR (do not resuscitate) Status: Acute Category: Medical Code(s): Z66 - Do not resuscitate (8) Left calcaneal fracture Status: Acute Category: Medical Code(s): S92.002A - Unspecified fracture of left calcaneus, initial encounter for closed fracture - Assessment and klaus
--- NOTE | 2020-08-14 08:43 | HMH.PHACONS ---
- Pharmacy Consult Date: 08/14/20 Time: 08:44 Referring provider: MARIAN Reason for Consult:: MANAGING VANCOMYCIN THERAPY FOR POSSIBLE BACTEREMIA/POSITIVE BLOOD CULTURES AND BROAD COVERAGE FOR PNEUMONIA Allergies and ADEs:: Allergies Allergy/AdvReac Type Severity Reaction Status Date / Time amiodarone Allergy Verified 08/11/20 10:46 Home Medications:: Home Medications Medication Instructions Recorded Confirmed Type Albuterol Sulfate [Albuterol 2 puff IH Q6HP PRN 08/11/20 08/11/20 History Sulfate Hfa] Aspirin 81 mg PO DAILY 08/11/20 08/11/20 History Baclofen [Lioresal 10mg tablet] 10 mg PO TID 08/11/20 08/11/20 History Celecoxib [CeleBREX 100mg Capsule] 100 mg PO TID 08/11/20 08/11/20 History Doxycycline Hyclate [Doxycycline 100 mg PO BID 08/11/20 08/11/20 History Hyclate 100mg Tablet] LORazepam [Lorazepam 1mg Tablet] 1 mg PO BID 08/11/20 08/11/20 History Montelukast Sodium 10 mg PO DAILY 08/11/20 08/11/20 History OXcarbazepine [Trileptal] 300 mg PO BID 08/11/20 08/11/20 History Omeprazole [Omeprazole 40mg 40 mg PO BID 08/11/20 08/11/20 History Capsule] Potassium Chloride [Klor-Con] 20 meq PO DAILY 08/11/20 08/11/20 History Simvastatin 40 mg PO HS 08/11/20 08/11/20 History Spironolactone [Spironolactone 25 mg PO DAILY 08/11/20 08/11/20 History 25mg Tablet] Torsemide [Demadex 20mg tablet] 20 mg PO DAILY 08/11/20 08/11/20 History Tramadol HCl [Tramadol 50mg 50 mg PO Q12H 08/11/20 08/11/20 History Tab] Trazodone HCl 300 mg PO HS 08/11/20 08/11/20 History Zinc Oxide [Diaper Rash Ointment] 0 gm TP QSHIFT PRN 08/11/20 08/11/20 History carvediloL [Carvedilol 25mg Tab] 12.5 mg PO DAILY 08/11/20 08/11/20 History carvediloL [Coreg 25mg Tablet] 25 mg PO HS 08/11/20 08/11/20 History ramipriL [Ramipril] 5 mg PO DAILY 08/11/20 08/11/20 History Height: 1.57 m Weight: 60.98 kg Laboratory Results:: Laboratory Results - last 24 hr 08/13/20 08:24: WBC 24.9 H*, RBC 3.34 L, Hgb 9.8 L, Hct 31.7 L, MCV 94.8, MCH 29.4, MCHC 31.0 L, RDW 14.6, Plt Count 262, MPV 8.6, Neut % (Auto) 92.3 H, Lymph % (Auto) 4.6 L, [place] % (Auto) 2.2, Eos % (Auto) 0.5, Baso % (Auto) 0.3, Neut # (Auto) 23.0 H, Lymph # (Auto) 1.2, [place] # (Auto) 0.5, Eos # (Auto) 0.1, Baso # (Auto) 0.1, Total Counted 100, Neutrophils % (Manual) 91 H, Lymphocytes % (Manual) 4 L, Monocytes % (Manual) 5, Platelet Estimate Normal, RBC Morphology Normal 08/13/20 08:24: Sodium 142, Potassium 2.9 L* D, Chloride 113 H, Carbon Dioxide 24, Anion Gap 7.9, BUN 19 H D, Creatinine 0.40 L D, Estimated Creat Clear 46, Estimated GFR 155, Est GFR ( Amer) 188 D, Glucose 82, Calcium 7.7 L 08/13/20 17:47: Vancomycin Trough 6.0 08/14/20 05:57: WBC 28.2 H*, RBC 3.45 L, Hgb 9.9 L, Hct 32.1 L, MCV 91.4, MCH 28.8, MCHC 31.5 L, RDW 14.4, Plt Count 254, MPV 8.5, Neut % (Auto) 87.3 H, Lymph % (Auto) 3.8 L, [place] % (Auto) 7.4, Eos % (Auto) 0.5, Baso % (Auto) 0.9, Neut # (Auto) 24.7 H, Lymph # (Auto) 1.1, [place] # (Auto) 2.1 H, Eos # (Auto) 0.1, Baso # (Auto) 0.3 H 08/14/20 05:57: Sodium 143, Potassium 3.6 D, Chloride 117 H, Carbon Dioxide 20 L, Anion Gap 9.6, BUN 16, Creatinine 0.40 L, Estimated Creat Clear 46, Estimated GFR 155, Est GFR ( Amer) 188, Glucose 66 L, Calcium 7.7 L Medical History: Reports:: Congestive Heart Failure, Hyperlipidemia, Hypertension Denies:: Diabetes Mellitus Type 1, Diabetes Mellitus Type 2 Assessment and Plan (1) HCAP (healthcare-associated pneumonia) Status: Acute Category: Medical Code(s): J18.9 - Pneumonia, unspecified organism (2) Severe sepsis Status: Acute Category: Medical Code(s): A41.9 - Sepsis, unspecified organism; R65.20 - Severe sepsis without septic shock (3) Respiratory failure with hypoxia Status: Acute Qualifiers: Chronicity: acute Qualified Code(s): J96.01 - Acute respiratory failure with hypoxia Category: Medical Code(s): J96.91 - Respiratory failure, unspecified with hypoxia (4) Congestive hear
[2020-08-14 09:54] LABS: Lymphocytes % 6 % (10-50); Monocytes % 8 % (2-9); Neutrophils % 86 % (42-76); Total Cells Counted 100
[2020-08-14 09:56] LABS: Hypochromasia 1+; Platelet Estimate Slight Decrease
--- NOTE | 2020-08-14 14:52 | DIET.NUTRFU ---
PO intakes poor and sporadic- 0-25%. She will at times drink her protein shake and eat some if given encouragement/cueing, other times she will refuse most-all meal rt confusion. She does like protein shakes but really dislikes ensure, shakes on diet order TID. Weight stable, she had a BM today. No further changes nutritional care plan at this time, continuing to monitor.
--- NOTE | 2020-08-14 16:00 | PC.NURSE ---
Pt has been pleasantly confused and somewhat cooperative this shift. Alert to person. No complaints of pain or SOA. Pt is currently wearing O2 via NC @ 3 LPM with sats. >90%. Lungs CTA. 2+ pitting edema noted to BLE. Dime-sized Stage 2 ulceration noted to Coccyx, along with redness/excoriation to bilateral buttocks. Large pressure-relief dressing applied. Telemetry reveals a PACED rhythm. Pt has been turned/repositioned Q2H this shift. F/C is patent and draining clear, yellow urine at bedside to gravity. Pt is incontinent and had 1 large, soft, brown stool this shift. 18 G peripheral IV in the RT AC is patent and SL. 20 G peripheral IV in the RT forearm is patent and SL. VSS. Call light within reach. Bed safety alarm is set. Will continue to monitor.
--- NOTE | 2020-08-14 21:51 | PC.NURSE ---
RA SATS WERE 90% RETURNED TO 2L NC
[2020-08-15] VITALS (11 sets, daily range): BP systolic 104–137; BP diastolic 51–74; PULSE 97–115; RESP 21–29; TEMP 36.8–37.5; O2SAT 72–100; BMI 24.5
--- NOTE | 2020-08-15 02:14 | PC.NURSE ---
patient has been on two liters nc since beginning of shift with sat in the high 90s. has an ineffective cough with inability to clear secretions. have performed oral suctioning throughout night, patient become highly agitated during procedure but o2 sats tolerate well.
[2020-08-15 05:59] LABS: Basophils # 0.2 K/mm3 (0-0.2); Basophils % 0.7 % (0.1-2.0); Eosinophils # 0.1 K/mm3 (0.0-0.4); Eosinophils % 0.3 % (0.1-12.0); Hematocrit 29.9 % (37.0-47.0); Hemoglobin 9.3 g/dL (12.2-16.2); Lymphocytes # 1.3 K/mm3 (0.7-4.5); Lymphocytes % 5.9 % (10-50); Mean Corpuscular Hemoglobin 28.7 pg (27.0-31.2); Mean Corpuscular Volume 92.6 fl (81-99); Mean Platelet Volume 9.6 fl (7.4-10.4); Monocytes # 0.7 K/mm3 (0.1-1.0); Monocytes % 3.1 % (1.7-9.3); Neutrophils # 19.9 K/mm3 (1.8-7.8); Platelet Count 267 K/mm3 (142-424); Red Blood Count 3.23 M/mm3 (4.20-5.40); Red Cell Distribution Width 14.6 % (11.5-17.5); White Blood Count 22.1 K/mm3 (4.8-10.8)
[2020-08-15 06:09] LABS: MANUAL DIFFERENTIAL MANUAL DIFFERENTIAL (MANUAL DIFF)
--- NOTE | 2020-08-15 07:55 | HMH.ACPN2 ---
Internal Medicine - PN: Subj *Date: 08/15/20 *Time: 07:55 Interval history: No acute events overnight. Patient has been weaned to 2 L via nasal cannula and is maintaining sats in the mid to high 90s. She reports cough is becoming productive Exam Vital signs and Labs for Last 24 Hours: Temp Pulse Resp BP Pulse Ox 98.9 F 113 H 26 H 137/74 98 08/15/20 04:00 08/15/20 06:45 08/15/20 04:00 08/15/20 04:00 08/15/20 06:45 Laboratory Results - last 24 hr 08/14/20 05:57: Total Counted 100, Neutrophils % (Manual) 86 H, Lymphocytes % (Manual) 6 L, Monocytes % (Manual) 8, Platelet Estimate Slight decrease, Hypochromasia 1+ 08/15/20 05:15: WBC 22.1 H*, RBC 3.23 L, Hgb 9.3 L, Hct 29.9 L, MCV 92.6, MCH 28.7, MCHC 31.0 L, RDW 14.6, Plt Count 267, MPV 9.6, Neut % (Auto) 90.0 H, Lymph % (Auto) 5.9 L, [place] % (Auto) 3.1, Eos % (Auto) 0.3, Baso % (Auto) 0.7, Neut # (Auto) 19.9 H, Lymph # (Auto) 1.3, [place] # (Auto) 0.7, Eos # (Auto) 0.1, Baso # (Auto) 0.2 I & O for Last 24 hours: Intake & Output 08/12/20 08/13/20 08/14/20 08/15/20 11:59 11:59 11:59 11:59 Intake Total 1545 / 1545 3549 / 3549 510 / 510 350 / 350 Output Total 175 / 175 575 / 575 1700 / 1700 2475 / 2475 Balance 1370 / 1370 2974 / 2974 -1190 / -1190 -2125 / -2125 Weight 135 lb 9 oz 134 lb 7.712 oz 134 lb 7 oz 133 lb 7 oz Microbiology Reports for the Last 24 Hours: Microbiology 08/12/20 06:00 Sputum - Expectorated Sputum Gram Stain - Final 08/12/20 06:00 Sputum - Expectorated Sputum Sputum Culture - Preliminary Gram Negative Rods 08/11/20 12:10 Nose - Other MRSA Culture - Final Negative Narrative: Patient is awake. She answers questions appropriately. Her voice is soft. Lungs have rales and rhonchi in left with improving aeration. Heart has a regular rate and rhythm. Abdomen is soft. Lower extremities have some 1+ posterior edema Assessment and Plan (1) HCAP (healthcare-associated pneumonia) Status: Acute Category: Medical Code(s): J18.9 - Pneumonia, unspecified organism (2) Severe sepsis Status: Acute Category: Medical Code(s): A41.9 - Sepsis, unspecified organism; R65.20 - Severe sepsis without septic shock (3) Respiratory failure with hypoxia Status: Acute Qualifiers: Chronicity: acute Qualified Code(s): J96.01 - Acute respiratory failure with hypoxia Category: Medical Code(s): J96.91 - Respiratory failure, unspecified with hypoxia (4) Congestive heart failure Status: Acute Category: Medical Code(s): I50.9 - Heart failure, unspecified (5) COPD (chronic obstructive pulmonary disease) Status: Acute Category: Medical Code(s): J44.9 - Chronic obstructive pulmonary disease, unspecified (6) Rheumatoid arthritis Status: Acute Category: Medical Code(s): M06.9 - Rheumatoid arthritis, unspecified (7) DNR (do not resuscitate) Status: Acute Category: Medical Code(s): Z66 - Do not resuscitate (8) Left calcaneal fracture Status: Acute Category: Medical Code(s): S92.002A - Unspecified fracture of left calcaneus, initial encounter for closed fracture - Assessment and plan all Dx Assessment and Plan for all problems:: 1. Sputum culture is growing multiple organisms. I have spoken with lab and expect that final results will be available tomorrow. Until then continue broad-spectrum antibiotics. 2. Once sputum cultures have become available patient will be ready for discharge back to [facility]
[2020-08-15 07:57] LABS: Anion Gap 6.6 mEq/L (5-15); Blood Urea Nitrogen 18 mg/dl (7-17); Calcium 8.1 mg/dl (8.4-10.2); Carbon Dioxide 27 mmol/L (22.0-30.0); Chloride 116 mmol/L (98-107); Creatinine Clearance Estimated 46 mL/min (50-200); Estimated Glomerular Filt Rate 120 ml/min (>60); GFR (African American) 145 ML/MIN (>60); Glucose 86 mg/dl (74-100); Sodium 147 mmol/L (136-145)
[2020-08-15 07:58] LABS: Potassium 2.6 mmoL/L (3.5-5.1)
[2020-08-15 08:24] LABS: Hypochromasia 1+; Lymphocytes % 12 % (10-50); Monocytes % 3 % (2-9); Neutrophils % 78 % (42-76); Platelet Estimate Normal; RBC Morphology Normal; Total Cells Counted 100
--- NOTE | 2020-08-15 09:02 | PC.NURSE ---
Pt placed on room air @ 0850, sat @ rest = 95% @ this time. Will keep pt on room air and monitor SPO2 via cont pulse ox
--- NOTE | 2020-08-15 15:36 | PC.NURSE ---
Remains on room air. Alert to self only. Has continued to ramble, not making any sense. Is not able to be oriented. Lungs diminished throughout. Has a intermittent wet cough. Oral care performed and suctioning prn. Abdomen soft, non-tender w/ active BS. No BM thus far. [place] cath to drain @ bedside. Urine is clear and pale in color. Turning and repositioning performed Q2H. Bed alarm in place for safety. Updated pt's family this AM via phone. New #18 IV placed in L wrist. IV in RAC DV'd d/t leaking.
[2020-08-16] VITALS (7 sets, daily range): BP systolic 90–127; BP diastolic 49–72; PULSE 101–118; RESP 23–31; TEMP 36.7–37.3; O2SAT 82–99; BMI 23.9
--- NOTE | 2020-08-16 03:07 | PC.NURSE ---
patient has been awake throughout shift, heart rate sustaining v paced with rate 90s to115. on r/a with o2 sats 88-94%
[2020-08-16 05:55] LABS: Basophils # 0.1 K/mm3 (0-0.2); Basophils % 0.5 % (0.1-2.0); Eosinophils # 0.1 K/mm3 (0.0-0.4); Eosinophils % 0.2 % (0.1-12.0); Hematocrit 33.6 % (37.0-47.0); Lymphocytes # 1.3 K/mm3 (0.7-4.5); Lymphocytes % 5.9 % (10-50); Mean Corpuscular HGB Conc 31.7 g/dL (31.8-35.4); Mean Corpuscular Hemoglobin 29.3 pg (27.0-31.2); Mean Corpuscular Volume 92.5 fl (81-99); Monocytes # 0.5 K/mm3 (0.1-1.0); Monocytes % 2.5 % (1.7-9.3); Neutrophils # 20.1 K/mm3 (1.8-7.8); Neutrophils % 90.9 % (37.0-80.0); Platelet Count 236 K/mm3 (142-424); Red Blood Count 3.63 M/mm3 (4.20-5.40); Red Cell Distribution Width 14.4 % (11.5-17.5)
[2020-08-16 05:57] LABS: Anion Gap 8.1 mEq/L (5-15); Blood Urea Nitrogen 20 mg/dl (7-17); Calcium 8.2 mg/dl (8.4-10.2); Carbon Dioxide 29 mmol/L (22.0-30.0); Chloride 115 mmol/L (98-107); Creatinine Clearance Estimated 45 mL/min (50-200); Estimated Glomerular Filt Rate 81 ml/min (>60); GFR (African American) 98 ML/MIN (>60); Glucose 68 mg/dl (74-100); Potassium 3.1 mmoL/L (3.5-5.1); Sodium 149 mmol/L (136-145)
[2020-08-16 06:04] LABS: White Blood Count 22.1 K/mm3 (4.8-10.8)
[2020-08-16 06:06] LABS: MANUAL DIFFERENTIAL MANUAL DIFFERENTIAL (MANUAL DIFF)
--- NOTE | 2020-08-16 07:52 | PC.NURSE ---
Pt placed back on 2 L O2 per nasal cannula. MD @ bedside.
--- NOTE | 2020-08-16 07:55 | HMH.ACPN2 ---
Internal Medicine - PN: Subj *Date: 08/16/20 *Time: 07:55 Interval history: No acute events. Patient has been weaned to room air with the occasional drop in sats down to 88%. Cough is loose and productive of sputum. Patient reports palpitations. Heart rate has been as high as 115 similar to admission. Exam Vital signs and Labs for Last 24 Hours: Temp Pulse Resp BP Pulse Ox 98.2 F 111 H 23 127/72 91 L 08/16/20 04:00 08/16/20 06:05 08/16/20 04:00 08/16/20 04:00 08/16/20 06:05 Laboratory Results - last 24 hr 08/15/20 05:15: Sodium 147 H, Potassium 2.6 L* D, Chloride 116 H, Carbon Dioxide 27 D, Anion Gap 6.6, BUN 18 H, Creatinine 0.50 L D, Estimated Creat Clear 46, Estimated GFR 120, Est GFR ( Amer) 145 D, Glucose 86 D, Calcium 8.1 L 08/15/20 05:15: Total Counted 100, Neutrophils % (Manual) 78 H, Band Neutrophils % 1.0, Lymphocytes % (Manual) 12, Monocytes % (Manual) 3, Metamyelocytes % 6.0 H, Platelet Estimate Normal, RBC Morphology Normal, Hypochromasia 1+ 08/16/20 05:05: Sodium 149 H, Potassium 3.1 L, Chloride 115 H, Carbon Dioxide 29, Anion Gap 8.1, BUN 20 H, Creatinine 0.70 D, Estimated Creat Clear 45, Estimated GFR 81, Est GFR ( Amer) 98 D, Glucose 68 L D, Calcium 8.2 L 08/16/20 05:05: WBC 22.1 H*, RBC 3.63 L, Hct 33.6 L, MCV 92.5, MCH 29.3, MCHC 31.7 L, RDW 14.4, Plt Count 236, MPV 10.0, Neut % (Auto) 90.9 H, Lymph % (Auto) 5.9 L, [place] % (Auto) 2.5, Eos % (Auto) 0.2, Baso % (Auto) 0.5, Neut # (Auto) 20.1 H, Lymph # (Auto) 1.3, [place] # (Auto) 0.5, Eos # (Auto) 0.1, Baso # (Auto) 0.1 I & O for Last 24 hours: Intake & Output 08/13/20 08/14/20 08/15/20 08/16/20 11:59 11:59 11:59 11:59 Intake Total 3549 / 3549 510 / 510 750 / 750 Output Total 575 / 575 1700 / 1700 2475 / 2475 2625 / 2625 Balance 2974 / 2974 -1190 / -1190 -1725 / -1725 -2625 / -2625 Weight 134 lb 7.712 oz 134 lb 7 oz 133 lb 7 oz 130 lb Microbiology Reports for the Last 24 Hours: Microbiology 08/12/20 06:00 Sputum - Expectorated Sputum Gram Stain - Final 08/12/20 06:00 Sputum - Expectorated Sputum Sputum Culture - Final Stenotrophomonas maltophilia Staphylococcus aureus - Constitutional no acute distress - *Routine HEENT Exam Head: Present: normocephalic Eye: Present: EOMI, PERRL ENT: Present: mucous membranes moist - *Routine Respiratory Exam Present: rhonchi (Left lung) - *Routine Cardiovascular Exam Present: tachycardia - *Routine Abdominal Exam Present: soft - *Routine Extremities Exam Present: edema Assessment and Plan (1) HCAP (healthcare-associated pneumonia) Status: Acute Category: Medical Code(s): J18.9 - Pneumonia, unspecified organism (2) Severe sepsis Status: Acute Category: Medical Code(s): A41.9 - Sepsis, unspecified organism; R65.20 - Severe sepsis without septic shock (3) Respiratory failure with hypoxia Status: Acute Qualifiers: Chronicity: acute Qualified Code(s): J96.01 - Acute respiratory failure with hypoxia Category: Medical Code(s): J96.91 - Respiratory failure, unspecified with hypoxia (4) Congestive heart failure Status: Acute Category: Medical Code(s): I50.9 - Heart failure, unspecified (5) COPD (chronic obstructive pulmonary disease) Status: Acute Category: Medical Code(s): J44.9 - Chronic obstructive pulmonary disease, unspecified (6) Rheumatoid arthritis Status: Acute Category: Medical Code(s): M06.9 - Rheumatoid arthritis, unspecified (7) DNR (do not resuscitate) Status: Acute Category: Medical Code(s): Z66 - Do not resuscitate (8) Left calcaneal fracture Status: Acute Category: Medical Code(s): S92.002A - Unspecified fracture of left calcaneus, initial encounter for closed fracture (9) Infection due to Stenotrophomonas maltophilia Status: Acute Category: Medical Code(s): A49.8 - Other bacterial infections of unspecified site
--- NOTE | 2020-08-16 08:00 | HMH.DCSUM ---
General - General Admission date:: 08/11/20 Discharge date: 08/16/20 HPI HPI: 74-year-old female with rheumatoid arthritis, COPD, and congestive heart failure presented to the emergency department from [facility] where patient has been residing for the last week. Patient was found to be hypoxic with decreased level of consciousness at the facility today and was transferred to our emergency department. Patient's O2 sat in route was as low as 78%. Patient arrived to the hospital ER on a nonrebreather. Patient was somnolent with depressed level of consciousness and minimal interaction. Work-up was begun and found a large left lower lobe pneumonia. Patient was started on broad-spectrum antibiotic coverage with cefepime and Levaquin. Since admission to the floor additional records have been received from [facility] that indicated patient has had staph in her sputum and was started on doxycycline yesterday. Therefore vancomycin has been added. Nonrebreather was used to try to keep sats in the low 90s which initially was successful but after admission patient has required transition to the Vapotherm which is keeping sats between 88 and 94%. Patient remains minimally interactive. Granddaughter is at bedside. Patient is moving arms and legs but does not respond to verbal or tactile stimulus. Hospital Course Hospital Course: Patient was admitted and started on broad-spectrum antibiotics for left lower lobe pneumonia with cefepime, Levaquin, vancomycin. For oxygen support patient was placed on Vapotherm. Patient improved slowly and Vapotherm was weaned to nasal cannula. By the day of discharge patient was able to maintain O2 sats in the low 90s on room air with occasional dips down into the high 80s. Because of these dips patient was maintained on oxygen at 2 L/min via nasal cannula. Patient's cough had become more productive his hospitalization progressed. Routine blood cultures drawn on admission were negative. Sputum cultures however grew 2 organisms, stenotrophomonas maltophilia and methicillin sensitive staph aureus. Both organisms were sensitive to Bactrim DS and patient will begin Bactrim DS for 7-day course to treat pneumonia. As patient's pneumonia had improved her respiratory status had improved patient was discharged back to [facility]. Patient has a history of heart disease. Adjustments were made to her medications during hospitalization that included increasing her carvedilol to 25 mg twice daily. Patient's pulse rate remained in the high 90s and low 100s during hospitalization. Patient has rheumatoid arthritis which was stable. Patient has a left calcaneal fracture and remained in her walking boot during hospitalization. Patient had recently begun residing at [facility] and she will be discharged back to [facility] to continue long-term rehabilitation Objective Vital signs: Temp Pulse Resp BP Pulse Ox 98.2 F 111 H 23 127/72 91 L 08/16/20 04:00 08/16/20 06:05 08/16/20 04:00 08/16/20 04:00 08/16/20 06:05 no acute distress - *Routine Respiratory Exam Present: rhonchi (Left lung) - *Routine Cardiovascular Exam Present: tachycardia - *Routine Abdominal Exam Present: soft, normoactive bowel sounds. Absent: tenderness - *Routine Extremities Exam Present: edema Results Labs on day of discharge: Labs from last 24 hours 08/16/20 08/16/20 08/15/20 05:05 05:05 05:15 WBC 22.1 H* RBC 3.63 L Hct 33.6 L MCV 92.5 MCH 29.3 MCHC 31.7 L RDW 14.4 Plt Count 236 MPV 10.0 Neut % (Auto) 90.9 H Lymph % (Auto) 5.9 L [place] % (Auto) 2.5 Eos % (Auto) 0.2 Baso % (Auto) 0.5 Neut # (Auto) 20.1 H Lymph # (Auto) 1.3 [place] # (Auto) 0.5 Eos # (Auto) 0.1 Baso # (Auto) 0.1 Total Counted 100 Neutrophils % (Manual) 78 H Band Neutrophils % 1.0 Lymphocytes % (
[2020-08-16 08:11] LABS: Lymphocytes % 4 % (10-50); Monocytes % 2 % (2-9); Myelocytes % 2 (0-1); Neutrophils % 90 % (42-76); Total Cells Counted 100
[2020-08-16 08:12] LABS: Hypochromasia 1+; Platelet Estimate Normal
[2020-08-16 09:02] LABS: Hemoglobin 10.6 g/dL (12.2-16.2)
--- NOTE | 2020-08-16 15:13 | PC.NURSE ---
Report called to Ivory @ [facility] @ 1400. [facility] notified of transport. PT left floor @ 1435 by stretcher. Attempted to notify pt's son, Tu that pt had left. No answer.
== END 2020-08-16 14:35 | DRG 871 ==
LOC: ER 12:27 → 2ND 12:32
PROVIDERS: Admitting Provider Family Medicine; Emergency Provider Emergency Medicine; PCP Family Medicine; Visit Provider Family Medicine
DX: A41.9 Sepsis, unspecified organism; J96.01 Acute respiratory failure with hypoxia; J18.9 Pneumonia, unspecified organism; I42.9 Cardiomyopathy, unspecified; J44.0 Chronic obstructive pulmonary disease with (acute) lower respiratory infection; R65.20 Severe sepsis without septic shock; I11.0 Hypertensive heart disease with heart failure; I50.9 Heart failure, unspecified; M06.9 Rheumatoid arthritis, unspecified; Z66 Do not resuscitate; E78.5 Hyperlipidemia, unspecified; Z88.8 Allergy status to other drugs, medicaments and biological substances
CPT/HCPCS: 36415; 71045; 80048; 80053; 80202; 81001; 82803; 83605; 83880; 84484; 85007; 85025; 87040; 87070; 87077; 87081; 87186; 87205; 87581; 87633; 87798; 93005; 94640; 94760; 94761; 96365; 99284; J1956; J3370; U0003

== ENCOUNTER 2020-08-17 02:05 | Observation (INO) | payer MEDICARE, MEDICAID, SELFPAY ==
[2020-08-17] VITALS (24 sets, daily range): BP systolic 84–179; BP diastolic 51–114; PULSE 84–125; RESP 18–33; TEMP 36.9–37.9; O2SAT 85–99; BMI 24.5; BMI 23.4
[2020-08-17 02:26] LABS: ABG Base Excess 2.4 mmol/L (-2.4-2.3); ABG HCO3 26.4 mmhg (22.0-26.0); ABG PCO2 38.8 mmhg (35.0-45.0); ABG PH 7.45 mmol/L (7.35-7.45); ABG TCO2 27.6 mmhg (23-27)
--- NOTE | 2020-08-17 02:26 | XR_ITS ---
PROCEDURE INFORMATION: Exam: XR Chest Exam date and time: 08/17/2020 2:26 AM Age: 75 years old Clinical indication: Dyspnea; Prior surgery; Surgery date: 6+ months; Surgery type: Pacemaker; Patient HX: Resp distress TECHNIQUE: Imaging protocol: XR of the chest. Views: 1 view. COMPARISON: CR XR CHEST PORTABLE 08/11/2020 11:18 AM FINDINGS: Lungs: Hyperexpansion of the lungs consistent with COPD. Patchy airspace disease bilaterally, left greater than right with peripheral consolidation in the left mid lung. Cardiac pacemaker in the left upper hemithorax. Pleural spaces: Small left-sided pleural effusion. Biapical pleural thickening. Heart/Mediastinum: No acute findings or cardiomegaly. Bones/joints: No acute findings. IMPRESSION: 1. COPD with patchy airspace disease and consolidation concerning for pneumonia, left greater than right. 2. Small left-sided effusion.
--- NOTE | 2020-08-17 02:26 | ECG_ITS ---
APPROVED REPORT Exam: Resting ECG HR:117 bpm ECG Measurements Heart Rate 117 AXES [place] 134 P QRSd 138 QRS 232 QT 408 T 265 QTc 569 Conclusion Electronic ventricular pacemaker Electronically signed by : Greg Willingham, 08/18/2020 08:50:09
[2020-08-17 02:27] LABS: Allen's Test Patient Unable; Oxygen 100% NRB %; Source FEMORAL
[2020-08-17 02:28] LABS: ABG PO2 32.8 mmhg (80-100)
[2020-08-17 02:59] LABS: Basophils # 0.1 K/mm3 (0-0.2); Basophils % 0.4 % (0.1-2.0); Eosinophils # 0.1 K/mm3 (0.0-0.4); Eosinophils % 0.6 % (0.1-12.0); Hematocrit 31.4 % (37.0-47.0); Hemoglobin 9.9 g/dL (12.2-16.2); Lymphocytes # 1.3 K/mm3 (0.7-4.5); Mean Corpuscular HGB Conc 31.4 g/dL (31.8-35.4); Mean Corpuscular Volume 92.3 fl (81-99); Mean Platelet Volume 9.8 fl (7.4-10.4); Monocytes # 0.8 K/mm3 (0.1-1.0); Monocytes % 3.1 % (1.7-9.3); Neutrophils # 22.9 K/mm3 (1.8-7.8); Platelet Count 227 K/mm3 (142-424); Red Cell Distribution Width 14.6 % (11.5-17.5); White Blood Count 25.2 K/mm3 (4.8-10.8)
[2020-08-17 03:01] LABS: MANUAL DIFFERENTIAL MANUAL DIFFERENTIAL (MANUAL DIFF)
[2020-08-17 03:03] LABS: Chloride 118 mmol/L (98-107); Potassium 3.4 mmoL/L (3.5-5.1)
[2020-08-17 03:05] LABS: Alanine Aminotransferase 34 U/L (12-78); Aspartate Amino Transferase 45 U/L (14-36); Blood Urea Nitrogen 31 mg/dl (7-17); Creatinine Clearance Estimated 44 mL/min (50-200); Estimated Glomerular Filt Rate 54 ml/min (>60); GFR (African American) 65 ML/MIN (>60)
[2020-08-17 03:06] LABS: Albumin Level 2.2 g/dl (3.5-5.0); Albumin/Globulin Ratio 0.6 (1.1-1.8); Alkaline Phosphatase 158 U/L (38-126); Anion Gap 9.4 mEq/L (5-15); Bilirubin,Total 0.5 mg/dl (0.2-1.3); Calcium 8.1 mg/dl (8.4-10.2); Carbon Dioxide 28 mmol/L (22.0-30.0); Globulin 3.9 g/dL (1.3-3.2); Glucose 93 mg/dl (74-100); Total Protein,Serum 6.1 g/dl (6.3-8.2)
[2020-08-17 03:07] LABS: Lactic Acid 1.5 mmol/L (0.7-2.1)
[2020-08-17 03:09] LABS: Sodium 152 mmol/L (136-145)
--- NOTE | 2020-08-17 03:12 | PC.NURSE ---
Addendum entered by Holly Woodson RN 08/17/20 06:00: notified of Critical Sodium at 0312 Original Note: RT placed pt on Vapotherm. Pt is on 25LPM at 50%Fio2 with Sao2 97%
[2020-08-17 03:18] LABS: C-Reactive Protein 199.3 mg/L (0-4); Troponin I 0.03 ng/ml (0.00-0.034)
[2020-08-17 03:23] LABS: Erythrocyte Sedimentation Rate > 140 mm/hr (0-30); Procalcitonin 0.303 ng/mL (0.0-2.0)
[2020-08-17 03:33] LABS: Lymphocytes % 7 % (10-50); Monocytes % 3 % (2-9); Neutrophils % 87 % (42-76); Platelet Estimate Normal; RBC Morphology Normal; Total Cells Counted 100
--- NOTE | 2020-08-17 04:16 | HMH.EDSOB ---
ED Disposition Clinical Impression: Acute exacerbation of chronic obstructive airways disease, HCAP (healthcare-associated pneumonia), Hypernatremia Disposition: Admitted as Observation Condition on Discharge: Fair Referrals: Raulito Ghosh [Primary Care Provider] - - Critical Care Critical Care Time: No Attestation: On 08/17/20, the high probability of a clinically significant, sudden or life threatening deterioration of the following system(s) required my full and direct attention, intervention and personal management. The time I documented below is in addition to time spent performing reported procedures but includes the following listed in this critical care notation. Medical Decision Making - Medical Records Medical records reviewed: Yes: I reviewed the patient's medical records. - Ralph Inquiry Pt receiving controlled substance: No Vital Signs: 08/17/20 02:06 08/17/20 02:30 08/17/20 03:00 Temperature 100.2 F H 100.2 F H Temperature Source Rectal Rectal Pulse Rate 125 H Pulse Rate [Left] 113 H Respiratory Rate 24 22 25 H Blood Pressure 179/98 H 150/112 H Blood Pressure [Right Arm] 154/114 H Blood Pressure Mean 166 124 Blood Pressure Mean [Right Arm] 127 Blood Pressure Source [Right Arm] Automatic Cuff 02 Sat by Pulse Oximetry 85 L 87 L 95 Oxygen Delivery Method Non-Rebreather Non-Rebreather Non-Rebreather Oxygen Flow Rate (LPM) 15 08/17/20 03:30 08/17/20 03:31 08/17/20 04:00 Temperature Temperature Source Pulse Rate 114 H 111 H Pulse Rate [Left] Respiratory Rate 27 H 26 H Blood Pressure 149/104 H 144/84 H Blood Pressure [Right Arm] Blood Pressure Mean 129 119 Blood Pressure Mean [Right Arm] Blood Pressure Source [Right Arm] 02 Sat by Pulse Oximetry 99 92 L 95 Oxygen Delivery Method Vapotherm Vapotherm Vapotherm Oxygen Flow Rate (LPM) 25 25 25 08/17/20 04:31 08/17/20 05:00 08/17/20 05:38 Temperature Temperature Source Pulse Rate 112 H 115 H 107 H Pulse Rate [Left] Respiratory Rate 28 H 28 H 33 H Blood Pressure 102/54 L 102/55 L 103/55 L Blood Pressure [Right Arm] Blood Pressure Mean 70 70 65 Blood Pressure Mean [Right Arm] Blood Pressure Source [Right Arm] 02 Sat by Pulse Oximetry 90 L 88 L 87 L Oxygen Delivery Method Nasal Cannula Nasal Cannula Nasal Cannula Oxygen Flow Rate (LPM) 2 2 2 - Lab Data Lab results reviewed: Yes: I reviewed the patient's lab results. Lab Results 08/17/20 02:22: Specimen Source Femoral, O2 % 100% nrb, ABG pH 7.45, ABG pCO2 38.8, ABG pO2 32.8 L, ABG HCO3 26.4 H, ABG Total CO2 27.6 H, ABG Base Excess 2.4 H, Michael Test Patient unable 08/17/20 02:40: WBC 25.2 H*, RBC 3.40 L, Hgb 9.9 L, Hct 31.4 L, MCV 92.3, MCH 29.0, MCHC 31.4 L, RDW 14.6, Plt Count 227, MPV 9.8, Neut % (Auto) 91.0 H, Lymph % (Auto) 5.0 L, [place] % (Auto) 3.1, Eos % (Auto) 0.6, Baso % (Auto) 0.4, Neut # (Auto) 22.9 H, Lymph # (Auto) 1.3, [place] # (Auto) 0.8, Eos # (Auto) 0.1, Baso # (Auto) 0.1, Total Counted 100, Neutrophils % (Manual) 87 H, Band Neutrophils % 2.0, Lymphocytes % (Manual) 7 L, Monocytes % (Manual) 3, Metamyelocytes % 1.0, Platelet Estimate Normal, RBC Morphology Normal 08/17/20 02:40: Sodium 152 H*, Potassium 3.4 L, Chloride 118 H, Carbon Dioxide 28, Anion Gap 9.4, BUN 31 H D, Creatinine 1.00 D, Estimated Creat Clear 44, Estimated GFR 54 L, Est GFR ( Amer) 65 D, Glucose 93 D, Calcium 8.1 L, Total Bilirubin 0.5, AST 45 H, ALT 34, Alkaline Phosphatase 158 H, Troponin I 0.03, C-Reactive Protein 199.3 H, Total Protein 6.1 L, Albumin 2.2 L, Globulin 3.9 H, Albumin/Globulin Ratio 0.6 L, Procalcitonin 0.303 08/17/20 02:40: Lactate 1.5 08/17/20 02:40: ESR > 140 H Result diagrams: 08/17/20 02:40 08/17/20 02:40 Orders (Tests/Meds): ED MEDICATIONS Generic Name Dose Route Start Last Admin Trade Name Freq PRN Reason Stop Dose Admin Sodium Chloride 1,000 mls @ 999 mls/hr 08/17/20 03:00 08/17/20 02:59 Sod Chlor 0.9% 10
--- NOTE | 2020-08-17 04:38 | PC.NURSE ---
Addendum entered by Holly Woodson RN 08/17/20 05:11: MD ricci with sat >86% Original Note: Per , placed pt on 2LPM NC. Sat was at 95-96% proir to change.
--- NOTE | 2020-08-17 04:56 | PC.NURSE ---
Dr Dickens spoke with pt's son about their expectations and [facility] goals.
--- NOTE | 2020-08-17 07:17 | PC.NURSE ---
Notified son, Nicho Marvin, that Dr. Means agreed for admission.
[2020-08-17 07:21] LABS: Adenovirus,PCR Not Detected (NotDetected); Bordetella Pertussis Not Detected (NotDetected); Chlamydophila Pneumoniae, PCR Not Detected (NotDetected); Coronavirus 19, PCR Not Detected (NotDetected); Coronavirus 229E Not Detected (NotDetected); Coronavirus NL63 Not Detected (NotDetected); Coronavirus OC43 Not Detected (NotDetected); Coronovirus HKU1,PCR Not Detected (NotDetected); Human Metapneumovirus Not Detected (NotDetected); Influenza A, PCR Not Detected (NotDetected); Influenza AH1, 2009 Not Detected (NotDetected); Influenza AH1, PCR Not Detected (NotDetected); Influenza AH3,PCR Not Detected (NotDetected); Influenza B, PCR Not Detected (NotDetected); Mycoplasma Pneumoniae, PCR Not Detected (NotDetected); Parainfluenza 1, PCR Not Detected (NotDetected); Parainfluenza 2, PCR Not Detected (NotDetected); Parainfluenza 3, PCR Not Detected (NotDetected); Parainfluenza 4, PCR Not Detected (NotDetected); Respiratory Syncytial Virus Not Detected (NotDetected); Rhinovirus/Enterovirus Not Detected (NotDetected)
--- NOTE | 2020-08-17 07:50 | PC.NURSE ---
Dr. Means at BS
--- NOTE | 2020-08-17 09:17 | PC.NURSE ---
attempted to call report to second floor, wardrobe specialist states receiving staff is in an isolation room, states she will have her call me
--- NOTE | 2020-08-17 09:53 | PC.NURSE ---
report given to chilango so on second floor.
--- NOTE | 2020-08-17 10:40 | PC.NURSE ---
ernestine on second floor states she is sending staff down now to transport pt.
--- NOTE | 2020-08-17 10:50 | HMH.PHAVTE ---
[facility] Pharmacy VTE Monitoring - Patient Demographics Admission date: 08/17/20 Report Date: 08/17/20 Time: 10:50 Allergies/Adverse Reactions: Patient Allergies amiodarone Allergy (Verified 08/17/20 02:32) prednisone Allergy (Verified 08/17/20 02:32) Height: 1.55 m Weight: 58.967 kg Patient Problems: Current Active Problems HCAP (healthcare-associated pneumonia) (Acute) Acute exacerbation of chronic obstructive airways disease (Acute) Hypernatremia (Acute) - VTE Risk Labs: VTE Related Lab Results Hgb 9.9 g/dL (12.2-16.2) L 08/17/20 02:40 Hct 31.4 % (37.0-47.0) L 08/17/20 02:40 Plt Count 227 K/mm3 (142-424) 08/17/20 02:40 BUN 31 mg/dl (7-17) H D 08/17/20 02:40 Creatinine 1.00 mg/dl (0.52-1.04) D 08/17/20 02:40 Estimated Creat Clear 44 mL/min (50-200) 08/17/20 02:40 Clinical Trial Participant: No - Prophylaxis VTE Prophylaxis Ordered?: Yes Types of VTE Prophylaxis: TEDS Knee High
--- NOTE | 2020-08-17 10:51 | HMH.PHAINT ---
HOME MEDICATION LIST CLARIFIED USING LIST FROM PREVIOUS DISCHARGE ON 08/16/[address] PERDUE
--- NOTE | 2020-08-17 15:00 | HMH.HP ---
*Admission Date: 08/17/20 *Chief complaint: hypoxia *History of present illness: 75 year old female discharged from [facility] on 08/16 returned to the ER early this a.m. after apparent hypoxia was detected at [facility] facility she resides in. Family requested farshad be sent back to [facility] for eval. Patient seems to be in pain according to her sons. Oxygen sats were in the 80's on routine finger pulse oximetry at the facility. While in the ER pulse oximetry via forehead monitoring revealed sats in the 90's on supplemental oxygen. Farshad was also found to have hypernatremia. Patient could not provide additional history. She has been admitted for obs. [facility] History I have reviewed the patient's past medical history: Yes Medical History: Reports:: Atherosclerotic Heart Disease, Cardiomyopathy, Congestive Heart Failure, Hyperlipidemia, Hypertension Denies:: Diabetes Mellitus Type 1, Diabetes Mellitus Type 2 *Have you ever received a pneumonia vaccine?: Yes *Have you received a flu vaccine this season?: Yes Other Medical History: Reports: Arthritis Other Surgeries: Yes: Cardiac Catheterization - *Social History Alcohol Intake: never *Occupational Status:: disabled Housing: shelter *Travel in the last 8 weeks: None Family Hx:: Unable to obtain Review of Systems - Review of Systems Review of systems:: unable to obtain Meds Home Medications Medication Instructions Recorded Confirmed Type Albuterol Sulfate [Albuterol 2 puff IH Q6HP PRN 08/11/20 08/17/20 History Sulfate Hfa] Aspirin 81 mg PO DAILY 08/11/20 08/17/20 History Baclofen [Lioresal 10mg tablet] 10 mg PO TID 08/11/20 08/17/20 History Celecoxib [CeleBREX 100mg Capsule] 100 mg PO TID 08/11/20 08/17/20 History Montelukast Sodium 10 mg PO DAILY 08/11/20 08/17/20 History Omeprazole [Omeprazole 40mg 40 mg PO BID 08/11/20 08/17/20 History Capsule] Simvastatin 40 mg PO HS 08/11/20 08/17/20 History Spironolactone [Spironolactone 25 mg PO DAILY 08/11/20 08/17/20 History 25mg Tablet] Torsemide [Demadex 20mg tablet] 20 mg PO DAILY 08/11/20 08/17/20 History Tramadol HCl [Tramadol 50mg 50 mg PO Q12H 08/11/20 08/17/20 History Tab] Zinc Oxide [Diaper Rash Ointment] 0 gm TP QSHIFT PRN 08/11/20 08/17/20 History Ipratropium [place] [Atrovent 0.5 mg IH QIDRT 08/17/20 08/17/20 History 0.5mg/2.5mL neb] Potassium Chloride [Klor-con 20 20 meq PO BID 08/17/20 08/17/20 History mEq tablet] Sulfamethoxazole/Trimethoprim 1 each PO BID 08/17/20 08/17/20 History [Bactrim DS tablet] Trazodone HCl [Desyrel 50mg tablet] 100 mg PO HS 08/17/20 08/17/20 History carvediloL [Coreg 25mg Tablet] 25 mg PO BID 08/17/20 08/17/20 History levalbuterol HCL [Xopenex 0.63 mg IH QIDRT 08/17/20 08/17/20 History 0.63mg/3mL neb] ramipriL [Altace 2.5mg capsule] 2.5 mg PO DAILY 08/17/20 08/17/20 History Allergies Allergy/AdvReac Type Severity Reaction Status Date / Time amiodarone Allergy Verified 08/17/20 02:32 prednisone Allergy Verified 08/17/20 02:32 Exam Vital signs and Labs for Last 24 Hours: Temp Pulse Resp BP Pulse Ox 99.8 F H 103 H 18 128/72 90 L 08/17/20 11:51 08/17/20 13:37 08/17/20 13:37 08/17/20 11:51 08/17/20 11:51 Laboratory Results - last 24 hr 08/17/20 02:22: Specimen Source Femoral, O2 % 100% nrb, ABG pH 7.45, ABG pCO2 38.8, ABG pO2 32.8 L, ABG HCO3 26.4 H, ABG Total CO2 27.6 H, ABG Base Excess 2.4 H, Michael Test Patient unable 08/17/20 02:40: WBC 25.2 H*, RBC 3.40 L, Hgb 9.9 L, Hct 31.4 L, MCV 92.3, MCH 29.0, MCHC 31.4 L, RDW 14.6, Plt Count 227, MPV 9.8, Neut % (Auto) 91.0 H, Lymph % (Auto) 5.0 L, [place] % (Auto) 3.1, Eos % (Auto) 0.6, Baso % (Auto) 0.4, Neut # (Auto) 22.9 H, Lymph # (Auto) 1.3, [place] # (Auto) 0.8, Eos # (Auto) 0.1, Baso # (Auto) 0.1, Total Counted 100, Neutrophils % (Manual) 87 H, Band Neutrophils % 2.0, Lymphocytes % (Manual) 7 L, Monocytes % (Manual) 3, Metamyelocytes % 1.0, Platelet Estimate Normal, RBC Morphology Normal
--- NOTE | 2020-08-17 15:48 | PC.NURSE ---
Pt unable to make productive cough, NT suctioned attempted, no sputum obtained.
--- NOTE | 2020-08-17 20:57 | PC.NURSE ---
Addendum entered by Jeff Christy RN 08/17/20 21:03: and cu - error Original Note: Pt is verbally non responsive. Pt is unable to swallow at this time or take po meds. Have made Dr. Means aware as well. Pt's family has requested to be consulted with the care of hospice, Dr. Means has been made aware and plans to do so in the am. Have made Dr. Means aware pt appears to be in pain and is restless. 1 mg or morphine was ordered q 4, then ordered q 2 when more was needed. See Mar. Pt had x 2 1 mg doses of morphine and was still restless and appreared to be in pain and cu. Dr. Means made aware and he ordered 1 mg ativan iv q 4 prn. Family has been at bedside this shift. Dsg applied to open area to coccyx and turned and repostioned q 2 hrs. VSS.
--- NOTE | 2020-08-17 21:25 | PC.WOUNDNOTE ---
Addendum entered by Jeff Christy RN 08/17/20 21:50: SEE PIC Original Note:
[2020-08-18] VITALS: BP 119/94; PULSE 104; RESP 22; TEMP 36.3; O2SAT 87
[2020-08-18 01:53] VITALS: O2SAT 93
[2020-08-18 04:00] VITALS: BP 95/74; PULSE 97; RESP 18; TEMP 36.4; O2SAT 91
--- NOTE | 2020-08-18 04:03 | PC.NURSE ---
Pt only responds to pain. Has been restless at times. Morphine administered Q2 hr as needed for pain and ativan 1 mg Q4 for anxiety and restlessness. Pt responds well with medication. She is resting well at this time. She remains on 4L O2 NC. Coarse crackles noted t/o lung jean. Pt has desat x1 this shift. Pt turned and repositioned. DSG to coccyx area. DSG applied to small open area on RUE. F/C draining to bedside with priyanka color urine. 350 ml total urine output. No other concerns. Family remains at bedside. Will continue to monitor.
[2020-08-18 05:27] VITALS: BMI 23.6
[2020-08-18 05:49] VITALS: PULSE 101; PULSE 94; O2SAT 90
[2020-08-18 07:22] LABS: Basophils # 0.1 K/mm3 (0-0.2); Basophils % 0.2 % (0.1-2.0); Eosinophils % 0.1 % (0.1-12.0); Hematocrit 28.4 % (37.0-47.0); Lymphocytes # 1.4 K/mm3 (0.7-4.5); Lymphocytes % 6.1 % (10-50); Mean Corpuscular HGB Conc 31.6 g/dL (31.8-35.4); Mean Corpuscular Hemoglobin 29.7 pg (27.0-31.2); Mean Corpuscular Volume 94.2 fl (81-99); Mean Platelet Volume 9.7 fl (7.4-10.4); Monocytes # 0.5 K/mm3 (0.1-1.0); Monocytes % 2.4 % (1.7-9.3); Neutrophils # 20.4 K/mm3 (1.8-7.8); Neutrophils % 91.2 % (37.0-80.0); Platelet Count 189 K/mm3 (142-424); Red Blood Count 3.02 M/mm3 (4.20-5.40); Red Cell Distribution Width 14.6 % (11.5-17.5); White Blood Count 22.4 K/mm3 (4.8-10.8)
[2020-08-18 07:26] LABS: MANUAL DIFFERENTIAL MANUAL DIFFERENTIAL (MANUAL DIFF)
[2020-08-18 07:30] LABS: Blood Urea Nitrogen 35 mg/dl (7-17); Calcium 7.7 mg/dl (8.4-10.2); Carbon Dioxide 27 mmol/L (22.0-30.0); Chloride 121 mmol/L (98-107); Creatinine Clearance Estimated 29 mL/min (50-200); Estimated Glomerular Filt Rate 34 ml/min (>60); GFR (African American) 41 ML/MIN (>60); Glucose 140 mg/dl (74-100)
[2020-08-18 07:37] VITALS: BP 69/39; PULSE 104; RESP 24; TEMP 36.2; O2SAT 84
--- NOTE | 2020-08-18 07:41 | P.PN_ITS ---
Internal Medicine - PN: Subj *Date: 08/18/20 *Time: 07:41 Interval history: Patient has required frequent use of morphine and Ativan to treat pain and restlessness since admission. She is maintained sats in the mid 90s and has not had any acute events overnight Exam Vital signs and Labs for Last 24 Hours: Temp Pulse Resp BP Pulse Ox 97.1 F L 104 H 24 69/39 L 84 L 08/18/20 07:37 08/18/20 07:37 08/18/20 07:37 08/18/20 07:37 08/18/20 07:37 Laboratory Results - last 24 hr 08/17/20 07:00: Chlamy pneumoniae PCR Not detected, Adenovirus (PCR) Not detected, B. pertussis DNA (PCR) Not detected, Coronavirus OC43 (PCR) Not detected, Coronavirus HKU1 (PCR) Not detected, Coronavirus 229E (PCR) Not detected, SARS-CoV-2 (PCR) Not detected, Coronavirus NL63 (PCR) Not detected, Human Metapneumovir PCR Not detected, Influenza A (H1) PCR Not detected, Influ A (H1N1/09) PCR Not detected, Influenza A (H3) PCR Not detected, Influenza Type A (PCR) Not detected, Influenza Type B (PCR) Not detected, M. pneumoniae (PCR) Not detected, Parainfluenza 1 (PCR) Not detected, Parainfluenza 2 (PCR) Not detected, Parainfluenza 3 (PCR) Not detected, Parainfluenza 4 (PCR) Not detected, RSV (PCR) Not detected, Entero/Rhino (PCR) Not detected 08/18/20 06:43: WBC 22.4 H*, RBC 3.02 L, Hgb 9.0 L, Hct 28.4 L, MCV 94.2, MCH 2 9.7, MCHC 31.6 L, RDW 14.6, Plt Count 189, MPV 9.7, Neut % (Auto) 91.2 H, Lymph % (Auto) 6.1 L, [place] % (Auto) 2.4, Eos % (Auto) 0.1, Baso % (Auto) 0.2, Neut # (Auto) 20.4 H, Lymph # (Auto) 1.4, [place] # (Auto) 0.5, Eos # (Auto) 0.0, Baso # (Auto) 0.1 I & O for Last 24 hours: Intake & Output 08/15/20 08/16/20 08/17/20 08/18/20 11:59 11:59 11:59 11:59 Intake Total 950 / 950 Output Total 300 / 300 Balance 650 / 650 Weight 128 lb 3 oz 128 lb Narrative: Patient is lying in bed. She does not respond to verbal or tactile stimulus. Oropharynx is dry. Nasal cannula is in place. Lungs have rhonchi bilaterally left more so than right. Heart rate is tachycardic. Abdomen is soft. Assessment and Plan (1) HCAP (healthcare-associated pneumonia) Status: Acute Category: Medical Code(s): J18.9 - Pneumonia, unspecified organism (2) Hypernatremia Status: Acute Category: Medical Code(s): E87.0 - Hyperosmolality and hypernatremia (3) Congestive heart failure Status: Acute Category: Medical Code(s): I50.9 - Heart failure, unspecified (4) DNR (do not resuscitate) Status: Acute Category: Medical Code(s): Z66 - Do not resuscitate (5) Infection due to Stenotrophomonas maltophilia Status: Acute Category: Medical Code(s): A49.8 - Other bacterial infections of unspecified site (6) Left calcaneal fracture Status: Acute Category: Medical Code(s): S92.002A - Unspecified fracture of left calcaneus, initial encounter for closed fracture (7) Staph aureus infection Status: Acute Category: Medical Code(s): A49.01 - Methicillin susceptible Staphylococcus aureus infection, unspecified site - Assessment and plan all Dx Assessment and Plan for all problems:: Patient has entered the dying process. Hospice will be consulted. Family would prefer transfer to hospice care center.
--- NOTE | 2020-08-18 07:53 | HMH.DCSUM ---
General - General Admission date:: 08/17/20 Discharge date: 08/18/20 HPI HPI: 75 year old female discharged from [facility] on 08/16 returned to the ER early this a.m. after apparent hypoxia was detected at [facility] facility she resides in. Family requested farshad be sent back to [facility] for eval. Patient seems to be in pain according to her sons. Oxygen sats were in the 80's on routine finger pulse oximetry at the facility. While in the ER pulse oximetry via forehead monitoring revealed sats in the 90's on supplemental oxygen. Farshad was also found to have hypernatremia. Patient could not provide additional history. She has been admitted for obs. Hospital Course Hospital Course: Patient was admitted. Patient slowly deteriorated over her admission and required increased use of morphine to keep the patient comfortable and Ativan to help with restlessness. Discussion was had with family about the unlikelihood the patient would recover. Family was agreeable to hospice consultation. Hospice was contacted. [facility] [place]. Objective Vital signs: Temp Pulse Resp BP Pulse Ox 97.1 F L 104 H 24 69/39 L 84 L 08/18/20 07:37 08/18/20 07:37 08/18/20 07:37 08/18/20 07:37 08/18/20 07:37 Results Labs on day of discharge: Labs from last 24 hours 08/18/20 08/17/20 06:43 07:00 WBC 22.4 H* RBC 3.02 L Hgb 9.0 L Hct 28.4 L MCV 94.2 MCH 29.7 MCHC 31.6 L RDW 14.6 Plt Count 189 MPV 9.7 Neut % (Auto) 91.2 H Lymph % (Auto) 6.1 L [place] % (Auto) 2.4 Eos % (Auto) 0.1 Baso % (Auto) 0.2 Neut # (Auto) 20.4 H Lymph # (Auto) 1.4 [place] # (Auto) 0.5 Eos # (Auto) 0.0 Baso # (Auto) 0.1 Chlamy pneumoniae PCR Not detected Adenovirus (PCR) Not detected B. pertussis DNA (PCR) Not detected Coronavirus OC43 (PCR) Not detected Coronavirus HKU1 (PCR) Not detected Coronavirus 229E (PCR) Not detected SARS-CoV-2 (PCR) Not detected Coronavirus NL63 (PCR) Not detected Human Metapneumovir PCR Not detected Influenza A (H1) PCR Not detected Influ A (H1N1/09) PCR Not detected Influenza A (H3) PCR Not detected Influenza Type A (PCR) Not detected Influenza Type B (PCR) Not detected M. pneumoniae (PCR) Not detected Parainfluenza 1 (PCR) Not detected Parainfluenza 2 (PCR) Not detected Parainfluenza 3 (PCR) Not detected Parainfluenza 4 (PCR) Not detected RSV (PCR) Not detected Entero/Rhino (PCR) Not detected DS: Diagnosis - Discharge Diagnosis (1) HCAP (healthcare-associated pneumonia) Status: Acute (2) Hypernatremia Status: Acute (3) Congestive heart failure Status: Acute (4) DNR (do not resuscitate) Status: Acute (5) Infection due to Stenotrophomonas maltophilia Status: Acute (6) Left calcaneal fracture Status: Acute (7) Staph aureus infection Status: Acute Discharge Plan - Patient Discharge Instructions ACTIVITY: Continue current activity DIET: NPO Patient Instructions: DI for Chronic Obstructive Pulmonary Disease, DI for Pneumonia -- Adult, DI for Hypernatremia - Follow up Plan Home Medications: Home Medications Medication Instructions Recorded Confirmed Type Albuterol Sulfate [Albuterol 2 puff IH Q6HP PRN 08/11/20 08/17/20 History Sulfate Hfa] Aspirin 81 mg PO DAILY 08/11/20 08/17/20 History Baclofen [Lioresal 10mg tablet] 10 mg PO TID 08/11/20 08/17/20 History Celecoxib [CeleBREX 100mg Capsule] 100 mg PO TID 08/11/20 08/17/20 History Montelukast Sodium 10 mg PO DAILY 08/11/20 08/17/20 History Omeprazole [Omeprazole 40mg 40 mg PO BID 08/11/20 08/17/20 History Capsule] Simvastatin 40 mg PO HS 08/11/20 08/17/20 History Spironolactone [Spironolactone 25 mg PO DAILY 08/11/20 08/17/20 History 25mg Tablet] Torsemide [Demadex 20mg tablet] 20 mg PO DAILY 08/11/20 08/17/20 History Tramadol HCl [Tramadol 50mg 50 mg PO Q12H 08/11/20 08/17/20 History
[2020-08-18 08:13] LABS: Sodium 152 mmol/L (136-145)
[2020-08-18 09:23] LABS: Lymphocytes % 7 % (10-50); Monocytes % 2 % (2-9); Neutrophils % 91 % (42-76); Platelet Estimate Normal; RBC Morphology Normal; Total Cells Counted 100
--- NOTE | 2020-08-18 10:26 | SW/DCPLANNER ---
Addendum entered by Maine Allen 08/19/20 06:29: PATIENT DISCHARGED TO THE [facility] IN [facility]... FAMILY AT BEDSIDE AND WAS IN AGREEMENT OF THE PLAN.. Original Note: RECEIVED REFERRAL FOR THIS PATIENT FOR A HOSPICE CONSULT: I SPOKE WITH BOTH SONS THIS MORNING AND THEY ARE IN AGREEMENT OF HOSPICE SERVICES AND STATED THEY ARE INTERESTED IN THE CARE CENTER IN [place].. I HAVE FAXED PATIENTS RECORD TO [facility] AND SOMEONE WILL BE HERE TODAY BETWEEN NOON AND 1:00 PM TO SEE PATIENT AND SPEAK WITH SONS... IF APPROVED AND THERE IS A BED SHE WILL TRANSFER THERE TODAY...
--- NOTE | 2020-08-18 14:15 | PC.NURSE ---
Harleen Hirsch, Hospice Nurse Coordinator for [facility] stated there was no need to call report, she already spoke to receiving nurse and gave report.
== END 2020-08-18 14:38 | disposition hospice, inpatient (51) ==
LOC: ER 07:01 → 2ND 07:04
PROVIDERS: Admitting Provider Family Medicine; Emergency Provider Emergency Medicine; PCP Family Medicine; Visit Provider Family Medicine
DX: J18.9 Pneumonia, unspecified organism (principal); I11.0 Hypertensive heart disease with heart failure; I50.9 Heart failure, unspecified; I25.10 Atherosclerotic heart disease of native coronary artery without angina pectoris; J44.9 Chronic obstructive pulmonary disease, unspecified; Z66 Do not resuscitate; M06.9 Rheumatoid arthritis, unspecified; E78.5 Hyperlipidemia, unspecified; Z88.8 Allergy status to other drugs, medicaments and biological substances; E87.0 Hyperosmolality and hypernatremia
CPT/HCPCS: 71045; 80048; 80053; 81001; 82803; 83605; 84145; 84484; 85007; 85025; 85651; 86140; 87040; 87581; 87633; 87798; 93005; 94640; 94761; 96365; 96366; 96375; 99284; G0378; J1956; J2405